=== PATIENT | male | born 1970 | race Caucasian/White ===

== ENCOUNTER 2019-06-17 08:18 | Emergency (ER) | payer OTHER, SELFPAY ==
--- NOTE | ~2019-06-17 | XR_ITS ---
EXAMINATION: XR chest 2V DATE: 06/17/2019 08:50 INDICATION: Mid chest pain, smoker TECHNIQUE: PA and lateral views of the chest are obtained. COMPARISON: 10/03/2018 FINDINGS: The lungs are free of acute opacities. There is no pleural effusion or pneumothorax. The ca rdiomediastinal silhouette is normal. There is mild thoracic spondylosis. IMPRESSION: 1. No acute cardiopulmonary abnormality. Reviewed, dictated and finalized at location A. ON MANIFEST CLERK
--- NOTE | ~2019-06-17 | CT_ITS ---
EXAMINATION: CTA chest abdomen DATE: 06/17/2019 12:52 INDICATION: Chest pain radiating to the abdomen TECHNIQUE: Computed tomographic angiography (CTA) of the chest and abdomen was performed without and with 100 mL Omnipaque-350 intravenous contrast. The dose-length product was 388.71 mGy-cm. Maximum in tensity projection 3D-reconstructions of the aorta and other arteries were constructed by the technol elizabeth on a separate workstation. Automated exposure control and iterative reconstruction technique we re employed. COMPARISON: CT dated 03/01/2015 FINDINGS: CHEST CTA: Mild emphysema. No focal airspace consolidation. No pneumothorax. No endobronchial lesions. No eviden ce for aortic aneurysm or dissection. Mild atherosclerosis of the aorta and coronary arteries. No ple ural or pericardial effusion. Heart size normal. No thoracic lymphadenopathy. ABDOMEN CTA: Normal caliber aorta without aneurysm or dissection. The celiac axis, SMA, renal arteries and NESS are patent. The liver, spleen, pancreas, adrenal glands and kidneys are unremarkable. No abdominal lymph adenopathy. Gallbladder is present. Bowel pattern is nonobstructive. Mild thoracic spondylosis. No ac duy osseous abnormality. IMPRESSION: 1. No acute abnormalities. No significant vascular abnormality. Mild atherosclerosis of the coronary arteries. 2: Mild emphysema. Reviewed, dictated and finalized at location A. AL INSPECTOR IMPRESSION: 1. No acute abnormalities. No significant vascular abnormality. Mild atheroscle rosis of the coronary arteries. 2: Mild emphysema.
--- NOTE | ~2019-06-17 | US_ITS ---
EXAMINATION: US right upper quadrant DATE: 06/17/2019 10:27 INDICATION: Abdominal pain TECHNIQUE: Multiple grayscale and Doppler ultrasound images of the abdomen were obtained. COMPARISON: None available FINDINGS: The head, body, and tail of the pancreas are normal. The liver is normal with normal echoge nicity and echotexture. No surface nodularity. Normal hepatopetal flow in the main portal vein. The g allbladder is normal with no abnormal wall thickening, pericholecystic fluid or stones. There is a 4 mm polyp of the gallbladder wall. No gallstones are gallbladder sludge are identified. There is no ga llbladder wall thickening or pericholecystic fluid. The normal common bile duct measures 3 mm. There was no sonographic White sign. IMPRESSION: 1. No sonographic correlate for the patient's symptoms. 2. 4 mm gallbladder polyp. Reviewed, dictated and finalized at location A. ADMIT
--- NOTE | 2019-06-17 08:23 | ED.CHESTPAIN ---
HPI - Chest Pain General Chief Complaint: Chest Pain Stated Complaint: chest pain Time Seen by Provider: 06/17/19 08:22 Source: patient and RN notes reviewed Mode of arrival: EMS Limitations: no limitations History of Present Illness HPI narrative: Pt is a 49 y/o male who presents to the ED, via EMS, with c/o brief sharp intermittent left sided chest pain that began (06/15/19). Pt states that today his pain was brief and lasted for less than one minute. He notes that today his pain radiated to random locations in his chest. Pt states that he went to [facility] on Wednesday (06/13/19) for chest pain and was recommended to be admitted and observed over night, but the pt left AMA. Pt states that he has an appointment with a slide maker at [facility] on Wednesday (06/20/19). Pt had a [employer] sandwich and he states the sandwich worsened his pain. Pt is an alcoholic and drinks two double shots of Fireball and four 16 ounce beers daily. He notes that he has not drank since Wednesday (06/13/19). Pt states his BM has been normal. Pt also reports burning RUQ ABD pain that began Wednesday (06/12/19), and back pain, but denies a fever, N/V/D, melena, SOB, diaphoresis, lightheadedness, and dizziness. complaint: chest pain Onset (ago): day(s) (2) Timing of current episode: now resolved Prior episodes: Yes Pain location: left chest Pain radiation: other (random locations in his chest) Quality: sharp Associated symptoms: other (burning RUQ ABD pain that began Wednesday (06/12/19), back pain) Related Data Allergies Allergy/AdvReac Type Severity Reaction Status Date / Time No Known Allergies Allergy Unknown Verified 06/17/19 08:36 Review of Systems Review of Systems: All systems reviewed & are unremarkable except as noted in HPI and below Constitutional: Constitutional: Denies fever(s) Cardiovascular: Cardiovascular: Reports chest pain (left sided, radiated to random locations in his chest (resolved)), Denies diaphoresis and Denies lightheadedness Respiratory: Respiratory: Denies dyspnea Gastrointestinal: Gastrointestinal: Reports abdominal pain (burning RLQ, that began Wednesday (06/12/19)), Denies melena, Denies diarrhea, Denies nausea and Denies vomiting Musculoskeletal: Musculoskeletal: Reports back pain Neurologic: Denies dizziness PMFSH Past Medical History Medical History (Updated 06/17/19 @ 13:29 by Jazmyn Hernandez MD) Arthritis Closed right ankle fracture Ganglion cyst behind his right knee GERD (gastroesophageal reflux disease) HTN (hypertension) Hyperlipidemia Sleep apnea Surgical History Surgical History (Updated 06/17/19 @ 08:54 by Emma Pope) H/O removal of cyst History of hand surgery left tendon repair Family History Family History (Updated 06/17/19 @ 08:56 by Emma Pope) Sibling Family history of malignant neoplasm of stomach Mother Family history of malignant neoplasm of breast in first degree relative Cerebrovascular accident Social History Social History (Updated 06/17/19 @ 08:52 by Emma Pope) Smoking packs per day: 1.5 Smoking cigarettes per day: 30.0 Smoking status: Current every day smoker Tobacco type: cigarettes Alcohol intake: current Substance use: never Additional occupation/education comments: Pt works at [employer]. Gender identity (if verbalized by the patient): Male Exam Narrative: Exam Narrative: GENERAL: Well-appearing, well-nourished, and in no acute distress. HEAD: Normocephalic, atraumatic EYES: PERRLA and EOMI, conjunctiva clear without discharge THROAT:Mucous membranes moist, Oropharynx normal without erythema, exudate, peritonsillar swelling or fluctuance NECK: Supple, without lymphadenopathy or mass RESPIRATORY: No respiratory distress, Airway patent, Respirations non-labored, Clear to auscultation without rales, rhonchi or wheeze HEART: Regular rate and rhythm. No murmur heard. Normal peripheral pulses. ABDOMEN: Soft, nont
[2019-06-17 08:27] VITALS: BP 139/92; PULSE 72; RESP 15; TEMP 36.7; O2SAT 100
--- NOTE | 2019-06-17 08:28 | ECG_ITS ---
Measurements Intervals [place] Rate: 69 P: 61 [place]: 175 QRS: 71 QRSD: 109 T: 54 QT: 376 QTc: 404 Interpretive Statements SINUS RHYTHM INCOMPLETE RIGHT BUNDLE BRANCH BLOCK DELAYED PRECORDIAL R/S TRANSITION BASELINE ARTIFACT- I, II, AVR BORDERLINE ECG Electronically Signed On 06-17-2019 17:26:23 SEARCH SPECIALIST by Martin Diane D.O.
[2019-06-17 08:53] LABS: Basophils Absolute Auto 0.1 K/mm3 (0.0-0.1); Basophils Percent Auto 1.1 % (0.2-1.2); Eosinophils Absolute Auto 0.2 K/mm3 (0-0.3); Eosinophils Percent Auto 2.8 % (0-4.4); Hematocrit 44.9 % (42.0-52.0); Hemoglobin 14.9 g/dL (14.0-18.0); Immature Granulocyte Absolute 0.02 K/mm3 (0.00-0.031); Immature Granulocyte Percent A 0.3 % (0-0.5); Lymphocytes Absolute Auto 1.66 K/mm3 (0.9-3.2); Lymphocytes Percent Auto 27.2 % (18.3-44.2); Mean Corpuscular HGB Conc 33.2 g/dl (32-36); Mean Corpuscular Hemoglobin 32.2 pg (26-34); Mean Platelet Volume 10.2 fl (7.4-10.4); Monocytes Absolute Auto 0.5 K/mm3 (0.1-0.6); Monocytes Percent Auto 8.9 % (2.6-8.5); Neutrophils Absolute Auto 3.6 K/mm3 (1.3-6.7); Neutrophils Percent Auto 59.7 % (45.5-73.1); Platelet Count Result 259 k/mm3 (150-375); Red Blood Count 4.63 M/mm3 (4.6-6.20); Red Cell Distribution Width 13.2 % (11.5-14.5); White Blood Count 6.1 K/mm3 (4.5-10.0)
--- NOTE | 2019-06-17 08:57 | PC.NURSE ---
Dr. Hernandez canceled order
[2019-06-17 09:03] LABS: Prothrombin Time 12.4 Seconds (11.1-14.7)
[2019-06-17 09:04] LABS: Partial Thromboplastin Time 30.9 SECONDS (22.3-36.8)
[2019-06-17 09:05] LABS: Alanine Aminotransferase 20 U/L (4-50); Albumin Level 4.8 g/dL (3.5-5.1); Alkaline Phosphatase 69 U/L (38-126); Aspartate Amino Transferase 24 U/L (17-59); Bilirubin,Total 0.6 mg/dL (0.2-1.3); Blood Urea Nitrogen 12 mg/dL (9-20); Calcium 9.7 mg/dL (8.4-10.2); Carbon Dioxide 24 mmol/L (22-30); Chloride 102 mmol/L (98-107); Estimated CRCL calculation 80 ml/min; Estimated Glomerular Filt Rate > 60; Glucose 111 mg/dL (75-110); Lipase 60 U/L (23-300); Potassium 4.4 mmol/L (3.4-5.0); Sodium 140 mmol/L (137-145)
[2019-06-17 09:17] LABS: Troponin I < 0.012 ng/mL (0.000-0.034)
[2019-06-17 09:53] VITALS: BP 122/81; PULSE 63; RESP 16; O2SAT 100
[2019-06-17 11:49] LABS: Troponin I < 0.012 ng/mL (0.000-0.034)
[2019-06-17 12:48] VITALS: BP 128/97; PULSE 70; RESP 15; O2SAT 98
[2019-06-17 13:41] VITALS: BP 149/84; PULSE 67; RESP 18; O2SAT 100
== END 2019-06-17 13:42 | disposition home or self-care (01) ==
PROVIDERS: Emergency Provider General Practice; PCP Emergency Medicine
DX: R07.89 Other chest pain (principal); R10.11 Right upper quadrant pain; M19.90 Unspecified osteoarthritis, unspecified site; K21.9 Gastro-esophageal reflux disease without esophagitis; I10 Essential (primary) hypertension; E78.5 Hyperlipidemia, unspecified; G47.30 Sleep apnea, unspecified; F17.210 Nicotine dependence, cigarettes, uncomplicated; K82.4 Cholesterolosis of gallbladder; J43.9 Emphysema, unspecified; I45.10 Unspecified right bundle-branch block; R94.31 Abnormal electrocardiogram [ECG] [EKG]
CPT/HCPCS: 36415; 71046; 71275; 74175; 76705; 80048; 80076; 83690; 84484; 85025; 85610; 85730; 93005; 99284; A9270; Q9967

== ENCOUNTER 2019-06-27 07:13 | Outpatient (CLI) | payer OTHER, SELFPAY ==
--- NOTE | ~2019-06-27 | NM_ITS ---
EXAMINATION: NM hepatobiliary w pharm DATE: 06/27/2019 09:16 INDICATION: Right upper quadrant abdominal pain. COMPARISON: CT abdomen 06/17/2019 TECHNIQUE: 5.2 mCi Tc-99m mebrofenin (Choletec) was administered intravenously. Scintigraphic images of the abdomen were obtained for one hour. Then, 1.5 mcg sincalide (Kinevac) IV was administered, an d imaging was continued for 30 minutes. FINDINGS: There is normal clearance of radiotracer from the blood pool. There is homogeneous tracer u ptake by the liver. Activity progresses to the bowel and gallbladder. Gallbladder ejection fraction (GBEF) was 55%. Note that most patients with gallbladder dysfunction have GBEF < 35%, which overlaps with the broad normal range of 10-90%. IMPRESSION: 1. Normal hepatobiliary scintigraphy. Reviewed, dictated and finalized at location A. AND SKIN FLESHING MACHINE OPERATOR
== END 2019-06-27 07:14 | disposition home or self-care (01) ==
LOC: ANHIMG 07:18
PROVIDERS: PCP Emergency Medicine; Visit Provider Emergency Medicine
DX: R10.11 Right upper quadrant pain (principal)
CPT/HCPCS: 78227; A9537; J2805

== ENCOUNTER → 2020-02-03 07:30 | Outpatient (CLI) | payer OTHER, SELFPAY ==
--- NOTE | ~2020-02-03 | US_ITS ---
US abdomen limited INDICATION: Follow-up gallbladder polyps PROCEDURE: Realtime right upper abdominal ultrasound. COMPARISON: No prior studies for comparison. FINDINGS: The pancreas is normal without focal mass or pancreatic ductal dilation. Liver echotexture is normal without focal mass or intrahepatic biliary dilatation. There is normal directional flow i n the portal vein. There are gallbladder polyps, largest measuring 5 mm. Common bile duct measures 3 mm. No sonographi c White's sign. IMPRESSION: 1: Gallbladder polyps measuring 5 mm or less. Reviewed, dictated and finalized at location A.
== END ==
PROVIDERS: PCP Emergency Medicine; Visit Provider Emergency Medicine
DX: K82.4 Cholesterolosis of gallbladder (principal)
CPT/HCPCS: 76705

== ENCOUNTER 2020-03-28 16:31 | Emergency (ER) | payer OTHER, SELFPAY ==
--- NOTE | 2020-03-28 16:38 | ECG_ITS ---
Measurements Intervals [place] Rate: 68 P: 60 [place]: 191 QRS: 67 QRSD: 109 T: 40 QT: 376 QTc: 401 Interpretive Statements SINUS RHYTHM DELAYED PRECORDIAL R/S TRANSITION BASELINE ARTIFACT- AVR, AVF, V6 BORDERLINE ECG Electronically Signed On 03-28-2020 18:23:18 SHEET MILL SUPERVISOR by Martin Diane D.O.
[2020-03-28 16:50] VITALS: BP 143/79; PULSE 74; RESP 16; TEMP 36.6; O2SAT 96
[2020-03-28 17:09] LABS: Basophils Absolute Auto 0.1 K/mm3 (0.0-0.1); Eosinophils Absolute Auto 0.3 K/mm3 (0-0.3); Eosinophils Percent Auto 3.6 % (0-4.4); Hematocrit 40.5 % (42.0-52.0); Hemoglobin 13.9 g/dL (14.0-18.0); Immature Granulocyte Absolute 0.03 K/mm3 (0.00-0.031); Immature Granulocyte Percent A 0.4 % (0-0.5); Lymphocytes Absolute Auto 2.52 K/mm3 (0.9-3.2); Lymphocytes Percent Auto 31.4 % (18.3-44.2); Mean Corpuscular HGB Conc 34.3 g/dl (32-36); Mean Corpuscular Hemoglobin 32.9 pg (26-34); Mean Corpuscular Volume 95.7 fl (80-100); Mean Platelet Volume 9.9 fl (7.4-10.4); Monocytes Absolute Auto 0.6 K/mm3 (0.1-0.6); Monocytes Percent Auto 7.7 % (2.6-8.5); Neutrophils Absolute Auto 4.5 K/mm3 (1.3-6.7); Neutrophils Percent Auto 55.9 % (45.5-73.1); Platelet Count Result 230 k/mm3 (150-375); Red Blood Count 4.23 M/mm3 (4.6-6.20); Red Cell Distribution Width 13.1 % (11.5-14.5)
[2020-03-28 17:20] LABS: Alanine Aminotransferase 21 U/L (4-50); Albumin Level 4.5 g/dL (3.5-5.1); Alkaline Phosphatase 79 U/L (38-126); Anion Gap 10 mmol/L (8-16); Aspartate Amino Transferase 26 U/L (17-59); Bilirubin,Total 0.3 mg/dL (0.2-1.3); Blood Urea Nitrogen 18 mg/dL (9-20); Calcium 9.4 mg/dL (8.4-10.2); Carbon Dioxide 24 mmol/L (22-30); Chloride 104 mmol/L (98-107); Estimated CRCL calculation 71 ml/min; Estimated Glomerular Filt Rate > 60; Glucose 102 mg/dL (75-110); Potassium 3.6 mmol/L (3.4-5.0); Sodium 138 mmol/L (137-145)
[2020-03-28 17:26] LABS: D Dimer 0.27 ug/mL (<0.48)
[2020-03-28 17:33] LABS: Troponin I < 0.012 ng/mL (0.000-0.034)
--- NOTE | 2020-03-28 18:05 | ED.GENADULT ---
HPI - General Adult General Chief complaint: Dizziness Stated complaint: dizzy/palpitations Time Seen by Provider: 03/28/20 16:38 Source: patient Mode of arrival: ambulatory Limitations: no limitations History of Present Illness HPI narrative: 50-year-old with a history of anxiety disorder, hypertension, hypercholesteremia here with complaints of palpitations and dizziness since this afternoon. Patient states he was at work and all of a sudden started having intermittent palpitations like skipped beat lasted for few minutes and soon after he felt dizzy. He denies any chest pain or shortness of breath. No history of nausea or vomiting. He states he is presently feeling better. Onset (ago): hour(s) (4) Exacerbating factors: none Associated symptoms: denies other symptoms Related Data Home Medications Medication Instructions Recorded Confirmed amlodipine 03/28/20 03/28/20 buspirone mg 03/28/20 hydrocodone-acetaminophen 03/28/20 omeprazole 03/28/20 rosuvastatin mg 03/28/20 Allergies Allergy/AdvReac Type Severity Reaction Status Date / Time No Known Allergies Allergy Unknown Verified 06/17/19 08:36 Review of Systems Review of Systems: All systems reviewed & are unremarkable except as noted in HPI and below Constitutional: Constitutional: Reports no additional constitutional complaints Eyes: Eyes: Reports no additional eye complaints ENT: Reports system reviewed and no additional complaints, except as documented Cardiovascular: Cardiovascular: Reports as per HPI Respiratory: Respiratory: Reports no additional respiratory complaints Gastrointestinal: Gastrointestinal: Reports no additional gastrointestinal complaints Musculoskeletal: Musculoskeletal: Reports no additional musculoskeletal complaints [facility] Past Medical History Medical History Arthritis Closed right ankle fracture Ganglion cyst behind his right knee GERD (gastroesophageal reflux disease) HTN (hypertension) Hyperlipidemia Sleep apnea Surgical History Surgical History H/O removal of cyst History of hand surgery left tendon repair Family History Family History Sibling Family history of malignant neoplasm of stomach Mother Family history of malignant neoplasm of breast in first degree relative Cerebrovascular accident Social History Social History Smoking packs per day: 1.5 Smoking cigarettes per day: 30.0 Smoking status: Current every day smoker Tobacco type: cigarettes Alcohol intake: current Substance use: never Additional occupation/education comments: Pt works at [employer]. Gender identity (if verbalized by the patient): Male Exam Narrative: Exam Narrative: GENERAL: Well-appearing, well-nourished, and in no acute distress. HEAD: Normocephalic, atraumatic. EYES: PERRLA and EOMI. NECK: Supple. CHEST: Clear to auscultation. No respiratory distress. HEART: Regular rate and rhythm. No murmur heard. Normal peripheral pulses. ABDOMEN: Soft, nontender, nondistended, normal active bowel sounds. EXTREMITIES: Normal range of motion. No edema. SKIN: Warm, dry, no rash. NEURO: No focal deficits. Alert and oriented x3. PSYCH: Normal mood and affect. Course Course Emergency Course: Patient lying comfortably on the bed talking on the phone in no distress, informed him about his lab work, EKG findings. Cause of his palpitations is unknown , advised him to continue his home medication, if symptoms persist advised him to follow-up with his primary doctor for possible Holter monitor. Vital Signs Vital signs: Vital Signs Temperature 36.6 C 03/28/20 16:50 Pulse Rate 74 03/28/20 16:50 Respiratory Rate 16 03/28/20 16:50 Blood Pressure 143/79 H 03/28/20 16:50 Pulse Oximetry 96 1
[2020-03-28 19:05] VITALS: BP 129/75; PULSE 70; RESP 16; O2SAT 98
== END 2020-03-28 19:07 | disposition home or self-care (01) ==
PROVIDERS: Emergency Provider Family Medicine; PCP Emergency Medicine
DX: R00.2 Palpitations (principal); I10 Essential (primary) hypertension; E78.00 Pure hypercholesterolemia, unspecified; F41.9 Anxiety disorder, unspecified; M19.90 Unspecified osteoarthritis, unspecified site; K21.9 Gastro-esophageal reflux disease without esophagitis; G47.30 Sleep apnea, unspecified; F17.210 Nicotine dependence, cigarettes, uncomplicated; R94.31 Abnormal electrocardiogram [ECG] [EKG]
CPT/HCPCS: 36415; 80053; 84484; 85025; 85380; 93005; 99284

== ENCOUNTER 2020-06-16 12:21 | Emergency (ER) | payer OTHER, SELFPAY ==
--- NOTE | ~2020-06-16 | XR_ITS ---
EXAMINATION: XR chest 1V portable EXAM DATE: 06/16/2020 17:17 INDICATION: Mid chest pain, rapid heart rate. High blood pressure. TECHNIQUE: Portable AP frontal chest x-ray was obtained. Comparison is made to prior examination from 06/17/2019. FINDINGS: Oh There is no focal air space disease. There are no pleural effusions. The cardiothymic silhouette is normal. There is no pneumothorax. There are no osseous or soft tissue abnormalities i n this skeletally immature patient. Lungs have normal volume. IMPRESSION: No acute cardiopulmonary findings. Reviewed, dictated and finalized at location A. RONMENTAL STUDIES PROFESSOR
[2020-06-16 12:21] VITALS: BP 140/93; PULSE 97; RESP 23; TEMP 36.8; O2SAT 100
--- NOTE | 2020-06-16 12:25 | ECG_ITS ---
Measurements Intervals [place] Rate: 89 P: 73 [place]: 176 QRS: 82 QRSD: 101 T: 62 QT: 336 QTc: 409 Interpretive Statements SINUS RHYTHM POSSIBLE LEFT ATRIAL ENLARGEMENT INCOMPLETE RIGHT BUNDLE BRANCH BLOCK DELAYED PRECORDIAL R/S TRANSITION BASELINE WANDER- II, III, AVF BORDERLINE ECG Electronically Signed On 06-16-2020 15:23:43 PARTNER MANAGER by Martin Diane D.O.
[2020-06-16 12:35] VITALS: PULSE 77
[2020-06-16 12:38] LABS: Basophils Absolute Auto 0.1 K/mm3 (0.0-0.1); Basophils Percent Auto 1.1 % (0.2-1.2); Eosinophils Absolute Auto 0.4 K/mm3 (0-0.3); Eosinophils Percent Auto 3.9 % (0-4.4); Hematocrit 42.9 % (42.0-52.0); Hemoglobin 14.6 g/dL (14.0-18.0); Immature Granulocyte Absolute 0.04 K/mm3 (0.00-0.031); Immature Granulocyte Percent A 0.4 % (0-0.5); Lymphocytes Absolute Auto 3.06 K/mm3 (0.9-3.2); Lymphocytes Percent Auto 32.9 % (18.3-44.2); Mean Corpuscular Hemoglobin 32.2 pg (26-34); Mean Corpuscular Volume 94.7 fl (80-100); Mean Platelet Volume 9.5 fl (7.4-10.4); Monocytes Absolute Auto 0.8 K/mm3 (0.1-0.6); Monocytes Percent Auto 8.3 % (2.6-8.5); Neutrophils Percent Auto 53.4 % (45.5-73.1); Platelet Count Result 293 k/mm3 (150-375); Red Blood Count 4.53 M/mm3 (4.6-6.20); Red Cell Distribution Width 13.2 % (11.5-14.5); White Blood Count 9.3 K/mm3 (4.5-10.0)
--- NOTE | 2020-06-16 12:45 | ED.CHESTPAIN ---
HPI - Chest Pain General Chief Complaint: Chest Pain Stated Complaint: chest pain Time Seen by Provider: 06/16/20 12:28 Source: patient and EMS Mode of arrival: EMS Limitations: no limitations History of Present Illness HPI narrative: Patient is 50 years old white male came to the emergency room by ambulance because of sudden onset chest tightness, palpitation, tingling numbness at the back of his head and left hand, loud ringing in the ears. Started while going upstairs. Prior to arrival to the emergency room. Tightness was 10 out of 10, currently is 0 out of 10. History of hypertension, hyperlipidemia, smoking, daily alcohol intake, denies any cocaine use. Patient reports a lot of stress lately. Related Data Home Medications Medication Instructions Recorded Confirmed amlodipine 03/28/20 03/28/20 buspirone mg 03/28/20 hydrocodone-acetaminophen 03/28/20 omeprazole 03/28/20 rosuvastatin mg 03/28/20 Allergies Allergy/AdvReac Type Severity Reaction Status Date / Time No Known Allergies Allergy Unknown Verified 06/16/20 12:35 Review of Systems Review of Systems: Narrative: CONSTITUTIONAL: Denies fever, chills, or sweats. EYES: Denies visual changes, redness, or discharge. ENT: Denies rhinorrhea, congestion, sore throat, or otalgia. CARDIOVASCULAR: Denies chest pain, palpitations, or edema. RESPIRATORY: Denies cough or dyspnea. GASTROINTESTINAL: Denies abdominal pain, nausea, vomiting, or diarrhea. GENITOURINARY: Denies dysuria or hematuria. SKIN: Denies rash or itching. MUSCULOSKELETAL: Denies back pain, joint pain, or myalgia. NEUROLOGIC: Denies headache, numbness, or weakness. PSYCHIATRIC: Denies anxiety or depression. [facility] Past Medical History Medical History Arthritis Closed right ankle fracture Ganglion cyst behind his right knee GERD (gastroesophageal reflux disease) HTN (hypertension) Hyperlipidemia Sleep apnea Surgical History Surgical History H/O removal of cyst History of hand surgery left tendon repair Family History Family History Sibling Family history of malignant neoplasm of stomach Mother Family history of malignant neoplasm of breast in first degree relative Cerebrovascular accident Social History Social History Smoking packs per day: 1.5 Smoking cigarettes per day: 30.0 Smoking status: Current every day smoker Tobacco type: cigarettes Alcohol intake: current Substance use: never Additional occupation/education comments: Pt works at [employer]. Gender identity (if verbalized by the patient): Male Exam Narrative: Exam Narrative: General appearance: Well-developed, well-nourished Skin: Normal color Head: Normocephalic, nontraumatic Eyes: Clear conjunctiva ENT: Oropharynx normal, ears normal, nose normal Neck: Supple, nontender Chest and respiratory: Airway patent, no respiratory distress, no accessory muscle use Heart: Regular rate/rhythm Abdomen: Soft, nontender, no organomegaly, quiet bowel sounds Vascular: Normal peripheral pulses, normal capillary refill. Musculoskeletal: Normal range of motion, nontender back Neurologic: Alert and oriented ?3, GIS ADMINISTRATOR is normal as tested, no gross motor deficit Course Course Emergency Course: Stable, improved Reevaluation(s) Reevaluation #1: Patient has been asymptomatic since arrival to the emergency room on the time of discharge. Patient was scheduled to see a call manager June 26 for regular checkup. Patient is telling
[2020-06-16 12:49] LABS: Anion Gap 9 mmol/L (8-16); Blood Urea Nitrogen 16 mg/dL (9-20); Calcium 9.7 mg/dL (8.4-10.2); Carbon Dioxide 25 mmol/L (22-30); Chloride 104 mmol/L (98-107); Estimated CRCL calculation 88 ml/min; Estimated Glomerular Filt Rate > 60; Glucose 94 mg/dL (75-110); Sodium 138 mmol/L (137-145)
[2020-06-16 12:53] VITALS: BP 153/92; PULSE 80
[2020-06-16 12:55] VITALS: BP 149/92; BP 150/98; PULSE 86; PULSE 88
[2020-06-16 12:59] LABS: D Dimer 0.27 ug/mL (<0.48)
--- NOTE | 2020-06-16 14:04 | ECG_ITS ---
Measurements Intervals [place] Rate: 66 P: 56 [place]: 192 QRS: 70 QRSD: 105 T: 56 QT: 364 QTc: 383 Interpretive Statements SINUS RHYTHM INCOMPLETE RIGHT BUNDLE BRANCH BLOCK DELAYED PRECORDIAL R/S TRANSITION BORDERLINE ECG Electronically Signed On 06-16-2020 15:27:46 COMPANION CAREGIVER by Martin Diane D.O.
[2020-06-16 14:15] VITALS: BP 145/89; PULSE 87; RESP 18; O2SAT 100
[2020-06-16] MEDS: ASPIRIN 81 MG CHEWABLE TABLET 324 MG PO (14:34)
[2020-06-16 14:45] LABS: INR 0.9; Prothrombin Time 12.2 Seconds (11.1-14.7)
[2020-06-16 14:46] LABS: Partial Thromboplastin Time 30.3 SECONDS (22.3-36.8)
[2020-06-16 14:52] LABS: Alanine Aminotransferase 25 U/L (4-50); Albumin Level 4.5 g/dL (3.5-5.1); Alkaline Phosphatase 94 U/L (38-126); Aspartate Amino Transferase 32 U/L (17-59); Bilirubin,Total 0.3 mg/dL (0.2-1.3)
[2020-06-16 15:00] LABS: Troponin I < 0.012 ng/mL (0.000-0.034)
[2020-06-16 16:14] VITALS: BP 128/87; PULSE 72; RESP 18; O2SAT 100
[2020-06-16 16:50] LABS: Troponin I < 0.012 ng/mL (0.000-0.034)
[2020-06-20 16:26] LABS: Methyl Alcohol Level None Detected (None Detected)
== END 2020-06-16 17:40 | disposition home or self-care (01) ==
PROVIDERS: Emergency Provider Emergency Medicine; PCP Emergency Medicine
DX: R07.89 Other chest pain (principal); I10 Essential (primary) hypertension; E78.5 Hyperlipidemia, unspecified; F17.210 Nicotine dependence, cigarettes, uncomplicated; M19.90 Unspecified osteoarthritis, unspecified site; K21.9 Gastro-esophageal reflux disease without esophagitis; G47.30 Sleep apnea, unspecified
CPT/HCPCS: 36415; 71045; 80048; 80076; 84484; 84600; 85025; 85380; 85610; 85730; 93005; 99284; A9270

== ENCOUNTER 2020-09-07 07:33 | Outpatient (CLI) | payer OTHER, SELFPAY ==
--- NOTE | ~2020-09-07 | US_ITS ---
US right upper quadrant DATE: 09/07/2020 10:24 INDICATION: Gallbladder polyp TECHNIQUE: Real-time imaging of liver, pancreas, gallbladder areas COMPARISON: 02/03/2020 limited abdominal ultrasound examination FINDINGS: Approximately 4 mm and 3 mm gallbladder polyps are noted. No gallstones. Gallbladder wall t hickness is within normal range. Negative sonographic White's sign. No hepatic or pancreatic space-occupying mass lesion is evident. Normal hepatopedal portal venous shraddha w direction. The common bile duct measures 5 mm, within normal range. IMPRESSION: 4 mm and 3 mm gallbladder polyps Reviewed, dictated and finalized at Location A. Reviewed, dictated and finalized at location A.
== END 2020-09-07 07:34 | disposition home or self-care (01) ==
PROVIDERS: PCP Emergency Medicine; Visit Provider Emergency Medicine
DX: K82.4 Cholesterolosis of gallbladder (principal)
CPT/HCPCS: 76705

== ENCOUNTER 2020-10-13 07:00 | Emergency (ER) | payer OTHER, SELFPAY ==
[2020-10-13] VITALS (24 sets, daily range): BP systolic 119–153; BP diastolic 66–92; PULSE 65–122; RESP 15–31; TEMP 37.4; O2SAT 96–100
--- NOTE | 2020-10-13 07:05 | ECG_ITS ---
Measurements Intervals [place] Rate: 91 P: 66 [place]: 166 QRS: 73 QRSD: 109 T: 43 QT: 360 QTc: 444 Interpretive Statements SINUS RHYTHM POSSIBLE LEFT ATRIAL ENLARGEMENT INCOMPLETE RIGHT BUNDLE BRANCH BLOCK ABNORMAL ECG Electronically Signed On 10-13-2020 8:22:49 CDT by Martin Diane D.O.
--- NOTE | 2020-10-13 07:21 | ED.GENADULT ---
HPI - General Adult General Chief complaint: Arrhythmia/Palpitations Stated complaint: heart skipping beats. Time Seen by Provider: 10/13/20 07:02 Source: patient History of Present Illness HPI narrative: Patient is a 50 y/o male complaining of frequent heart palpitation starting today. He states that rest seems help. He has no chest pain or SOB. Related Data Home Medications Medication Instructions Recorded Confirmed amlodipine 03/28/20 03/28/20 rosuvastatin mg 03/28/20 Allergies Allergy/AdvReac Type Severity Reaction Status Date / Time No Known Allergies Allergy Unknown Verified 10/13/20 07:10 Review of Systems Constitutional: Constitutional: Denies chills, Denies fever(s), Denies headache(s) and Denies weakness Eyes: Eyes: Denies blurry vision ENT: Denies headache(s) and Denies neck pain Cardiovascular: Cardiovascular: Denies chest pain, Reports irregular heart rhythm and Denies dyspnea Respiratory: Respiratory: Denies cough and Denies dyspnea Gastrointestinal: Gastrointestinal: Denies abdominal pain, Denies diarrhea, Denies nausea and Denies vomiting Genitourinary: Genitourinary: Denies hematuria and Denies dysuria Musculoskeletal: Musculoskeletal: Denies back pain and Denies neck pain Neurologic: Denies headache(s) and Denies weakness PMFSH Past Medical History Medical History Arthritis Closed right ankle fracture Ganglion cyst behind his right knee GERD (gastroesophageal reflux disease) HTN (hypertension) Hyperlipidemia Sleep apnea Surgical History Surgical History H/O removal of cyst History of hand surgery left tendon repair Family History Family History Sibling Family history of malignant neoplasm of stomach Mother Family history of malignant neoplasm of breast in first degree relative Cerebrovascular accident Social History Social History Smoking packs per day: 1.5 Smoking cigarettes per day: 30.0 Smoking status: Current every day smoker Tobacco type: cigarettes Alcohol intake: current Substance use: never Additional occupation/education comments: Pt works at [employer] Gender identity (if verbalized by the patient): Male Exam Const: General: no acute distress and well developed Orientation/consciousness: oriented to person, oriented to place, oriented to time and patient oriented x3 HENMT: Head: normocephalic Ears: external ears normal General nose exam: Normal external nose present Eyes: General: appearance normal, both eyes and all related structures Conjunctivae: conjunctivae normal Neck: Neck: normal visual inspection and full ROM Chest: Chest palpation & inspection: normal inspection of the chest and no tenderness Resp: Effort & Inspection: normal respiratory effort Auscultation: clear to auscultation bilaterally Cardio: Rate: regular rate Rhythm: regular rhythm GI: GI Palp: No abdominal tenderness and Yes Soft to palpation Skin: General skin exam: normal color and turgor normal Neuro: General: oriented to person, oriented to place, oriented to time and patient oriented x3 Cognition (Neuro): normal cognition Extrem: General: normal to inspection, full ROM and no pedal edema Psych: Appearance: grossly normal Mental Status: mental status grossly normal Affect: normal affect Course Reevaluation(s) Reevaluation #1: Discussed with patient about labs and EKG results and plan for discharge. Occasional PVC is noted on monitor and it's likely the cause of patient's symptoms. Date: 10/13/20 Time: 10:15 Vital Signs Vital signs: Vital Signs Temperature 37.4 C 10/13/20 07:05 Pulse Rate 96 10/13/20 07:05 Respiratory Rate 20 10/13/20 07:05 Blood Pressure 153/92 H 10/13/20 07:05 Pulse Oximetry 99 10/13/20
[2020-10-13 07:22] LABS: Basophils Absolute Auto 0.1 K/mm3 (0.0-0.1); Basophils Percent Auto 1.2 % (0.2-1.2); Eosinophils Absolute Auto 0.3 K/mm3 (0-0.3); Eosinophils Percent Auto 3.9 % (0-4.4); Hematocrit 43.5 % (42.0-52.0); Hemoglobin 14.6 g/dL (14.0-18.0); Immature Granulocyte Absolute 0.02 K/mm3 (0.00-0.031); Immature Granulocyte Percent A 0.2 % (0-0.5); Lymphocytes Absolute Auto 2.49 K/mm3 (0.9-3.2); Lymphocytes Percent Auto 29.5 % (18.3-44.2); Mean Corpuscular HGB Conc 33.6 g/dl (32-36); Mean Corpuscular Hemoglobin 31.9 pg (26-34); Mean Corpuscular Volume 95.2 fl (80-100); Mean Platelet Volume 9.5 fl (7.4-10.4); Monocytes Absolute Auto 0.7 K/mm3 (0.1-0.6); Monocytes Percent Auto 8.4 % (2.6-8.5); Neutrophils Absolute Auto 4.8 K/mm3 (1.3-6.7); Neutrophils Percent Auto 56.8 % (45.5-73.1); Platelet Count Result 235 k/mm3 (150-375); Red Blood Count 4.57 M/mm3 (4.6-6.20); White Blood Count 8.4 K/mm3 (4.5-10.0)
[2020-10-13 07:31] LABS: Anion Gap 13 mmol/L (8-16); Blood Urea Nitrogen 20 mg/dL (9-20); Calcium 9.5 mg/dL (8.4-10.2); Carbon Dioxide 22 mmol/L (22-30); Chloride 107 mmol/L (98-107); Estimated CRCL calculation 76 ml/min; Estimated Glomerular Filt Rate > 60; Glucose 90 mg/dL (75-110); Potassium 3.9 mmol/L (3.4-5.0); Sodium 142 mmol/L (137-145)
[2020-10-13 07:43] LABS: Troponin I < 0.012 ng/mL (0.000-0.034)
[2020-10-13 08:18] LABS: Thyroid Stimulating Hormone 0.598 uIU/mL (0.465-4.680)
== END 2020-10-13 10:30 | disposition home or self-care (01) ==
PROVIDERS: Emergency Provider Emergency Medicine; PCP Emergency Medicine
DX: R00.2 Palpitations (principal); I49.3 Ventricular premature depolarization; M19.90 Unspecified osteoarthritis, unspecified site; K21.9 Gastro-esophageal reflux disease without esophagitis; E78.5 Hyperlipidemia, unspecified; I10 Essential (primary) hypertension; G47.30 Sleep apnea, unspecified; F17.210 Nicotine dependence, cigarettes, uncomplicated; I45.10 Unspecified right bundle-branch block; R94.31 Abnormal electrocardiogram [ECG] [EKG]
CPT/HCPCS: 36415; 80048; 84443; 84484; 85025; 93005; 99284

== ENCOUNTER 2020-10-19 03:19 | Emergency (ER) | payer OTHER, SELFPAY ==
[2020-10-19] VITALS (37 sets, daily range): BP systolic 112–157; BP diastolic 67–101; PULSE 57–82; RESP 14–20; O2SAT 96–100
--- NOTE | ~2020-10-19 | XR_ITS ---
EXAMINATION: XR chest 2V 10/19/2020 03:40 INDICATION: Chest pain PROCEDURE: PA and lateral views of the chest COMPARISON: Comparison to multiple prior studies sequentially, with oldest reviewed study dated 10/10. FINDINGS: The lungs are clear. The cardiomediastinal silhouette is within normal limits. There are no pleural effusions. There is no pneumothorax suspected. IMPRESSION: 1: NO ACUTE CARDIOPULMONARY DISEASE. Reviewed, dictated and finalized at location A.
--- NOTE | 2020-10-19 03:25 | ED.CHESTPAIN ---
HPI - Chest Pain General Chief Complaint: Chest Pain <West Glover MD - Last Filed: 10/19/20 06:53> Stated Complaint: Chest pain, pain with inspiration <West Glover MD - Last Filed: 10/19/20 06:53> Time Seen by Provider: 10/19/20 03:24 <West Glover MD - Last Filed: 10/19/20 06:53> History of Present Illness HPI narrative: Pain across the anterior chest. Worse with taking a deep breath or any movement of the upper body. Moderate intensity. Associated with mild SOB. He smokes about 1.5 PPD. No change in activity. <West Glover MD - Last Filed: 10/19/20 06:53> Related Data Home Medications: Home Medications Medication Instructions Recorded Confirmed amlodipine 03/28/20 03/28/20 rosuvastatin mg 03/28/20 <West Glover MD - Last Filed: 10/19/20 06:53> Allergies/Adverse Reactions: Allergies Allergy/AdvReac Type Severity Reaction Status Date / Time No Known Allergies Allergy Unknown Verified 10/19/20 03:29 <West Glover MD - Last Filed: 10/19/20 06:53> Review of Systems Review of Systems: All systems reviewed & are unremarkable except as noted in HPI and below <West Glover MD - Last Filed: 10/19/20 06:53> Constitutional: Constitutional: Denies chills and Denies fever(s) <West Glover MD - Last Filed: 10/19/20 06:53> Cardiovascular: Cardiovascular: Reports as per HPI and Denies radiating jaw, neck or arm pain <West Glover MD - Last Filed: 10/19/20 06:53> Respiratory: Respiratory: Reports dyspnea <West Glover MD - Last Filed: 10/19/20 06:53> Gastrointestinal: Gastrointestinal: Denies nausea and Denies vomiting <West Glover MD - Last Filed: 10/19/20 06:53> Musculoskeletal: Musculoskeletal: Reports no additional musculoskeletal complaints <West Glover MD - Last Filed: 10/19/20 06:53> Integumentary/Breasts: Skin/Breast: Reports system reviewed and no additional complaints, except as docu <West Glover MD - Last Filed: 10/19/20 06:53> Neurologic: Denies dizziness and Denies weakness <West Glover MD - Last Filed: 10/19/20 06:53> PMFSH Past Medical History Medical History: Medical History Arthritis Closed right ankle fracture Ganglion cyst behind his right knee GERD (gastroesophageal reflux disease) HTN (hypertension) Hyperlipidemia Sleep apnea <West Glover MD - Last Filed: 10/19/20 06:53> Surgical History Surgical History: Surgical History H/O removal of cyst History of hand surgery left tendon repair <West Glover MD - Last Filed: 10/19/20 06:53> Family History Family History: Family History Sibling Family history of malignant neoplasm of stomach Mother Family history of malignant neoplasm of breast in first degree relative Cerebrovascular accident <West Glover MD - Last Filed: 10/19/20 06:53> Social History Social History: Social History Smoking packs per day: 1.5 Smoking cigarettes per day: 30.0 Smoking status: Current every day smoker Tobacco type: cigarettes Alcohol intake: current Substance use: never Additional occupation/education comments: Pt works at [employer]. Gender identity (if verbalized by the patient): Male <West Glover MD - Last Filed: 10/19/20 06:53> Exam Const: General: no acute distress and alert <West Glover MD - Last Filed: 10/19/20 06:53> Nutritional Appearance: well nourished <West Glover MD - Last Filed: 10/19/20 06:53> Orientation/consciousness: patient oriented x3 <West Glover MD - Last Filed: 10/19/20 06:53> HENMT: Head: normal to inspection <West Glover MD - Last Filed: 0
--- NOTE | 2020-10-19 03:29 | ECG_ITS ---
Measurements Intervals [place] Rate: 76 P: 69 MI: 187 QRS: 76 QRSD: 104 T: 48 QT: 365 QTc: 411 Interpretive Statements SINUS RHYTHM INCOMPLETE RIGHT BUNDLE BRANCH BLOCK DELAYED PRECORDIAL R/S TRANSITION BASELINE ARTIFACT- I, III BORDERLINE ECG Electronically Signed On 10-19-2020 6:29:36 CDT by Martin Diane D.O.
[2020-10-19 03:45] LABS: Basophils Absolute Auto 0.1 K/mm3 (0.0-0.1); Basophils Percent Auto 1.1 % (0.2-1.2); Eosinophils Absolute Auto 0.5 K/mm3 (0-0.3); Eosinophils Percent Auto 5.4 % (0-4.4); Hematocrit 45.5 % (42.0-52.0); Hemoglobin 15.1 g/dL (14.0-18.0); Immature Granulocyte Absolute 0.02 K/mm3 (0.00-0.031); Immature Granulocyte Percent A 0.2 % (0-0.5); Lymphocytes Percent Auto 34.6 % (18.3-44.2); Mean Corpuscular HGB Conc 33.2 g/dl (32-36); Mean Corpuscular Hemoglobin 31.9 pg (26-34); Mean Platelet Volume 9.6 fl (7.4-10.4); Monocytes Absolute Auto 0.9 K/mm3 (0.1-0.6); Monocytes Percent Auto 10.8 % (2.6-8.5); Neutrophils Percent Auto 47.9 % (45.5-73.1); Platelet Count Result 269 k/mm3 (150-375); Red Blood Count 4.74 M/mm3 (4.6-6.20); Red Cell Distribution Width 13.2 % (11.5-14.5); White Blood Count 8.4 K/mm3 (4.5-10.0)
[2020-10-19 03:54] LABS: INR 0.9
[2020-10-19 03:55] LABS: Anion Gap 8 mmol/L (8-16); Blood Urea Nitrogen 18 mg/dL (9-20); Calcium 9.8 mg/dL (8.4-10.2); Carbon Dioxide 25 mmol/L (22-30); Chloride 108 mmol/L (98-107); Estimated CRCL calculation 88 ml/min; Estimated Glomerular Filt Rate > 60; Glucose 117 mg/dL (75-110); Partial Thromboplastin Time 29.7 SECONDS (22.3-36.8); Potassium 4.1 mmol/L (3.4-5.0); Sodium 141 mmol/L (137-145)
[2020-10-19 04:07] LABS: Troponin I < 0.012 ng/mL (0.000-0.034)
[2020-10-19] MEDS: KETOROLAC 30 MG/ML VIAL (*BKC) IV PUSH (04:09)
[2020-10-19] MEDS: ALBUTEROL SULFATE NEB 2.5 MG/0.5 ML INH 5 MG INHALATION (04:31)
[2020-10-19] MEDS: IPRATROPIUM BR 0.02% INH SOLN 0.5 MG/2.5 ML VIAL INHALATION (04:31)
[2020-10-19 07:26] LABS: Troponin I < 0.012 ng/mL (0.000-0.034)
== END 2020-10-19 08:22 | disposition home or self-care (01) ==
PROVIDERS: Emergency Provider Emergency Medicine; PCP Emergency Medicine
DX: R07.89 Other chest pain (principal); R06.2 Wheezing; M19.90 Unspecified osteoarthritis, unspecified site; K21.9 Gastro-esophageal reflux disease without esophagitis; I10 Essential (primary) hypertension; E78.5 Hyperlipidemia, unspecified
CPT/HCPCS: 36415; 71046; 80048; 84484; 85025; 85610; 85730; 93005; 94640; 96374; 99284; J1885

== ENCOUNTER → 2021-09-06 07:19 | Outpatient (CLI) | payer OTHER, SELFPAY ==
--- NOTE | ~2021-09-06 | US_ITS ---
EXAMINATION: US right upper quadrant DATE: 09/06/2021 07:45 INDICATION: Gallbladder polyp follow-up. TECHNIQUE: Multiple grayscale and Doppler ultrasound images of the right upper quadrant were obtained . COMPARISON: 09/07/2020. FINDINGS: Visualized portions of the pancreas are normal. The liver is normal with normal echogenicit y and echotexture. No surface nodularity. Normal hepatopetal flow in the main portal vein. 2 echogeni c foci are present in the gallbladder, nonmobile and nonshadowing, measuring 3.6 and 4 mm, unchanged from the prior study given interval differences in measurement technique. No wall thickening or peric holecystic fluid. The normal common bile duct measures 0.5. There was no sonographic White sign. The visualized portions of the inferior vena cava are normal. The right kidney measures 10.8 cm. IMPRESSION: 1. Stable gallbladder polyps. If this patient has no risk factors for gallbladder malignancy, no furt her imaging follow-up recommended. Reviewed, dictated and finalized at location K. IMPRESSION: 1. Stable gallbladder polyps. If this patient has no risk factors for gallbladd er malignancy, no further imaging follow-up recommended.
== END ==
PROVIDERS: PCP Emergency Medicine; Visit Provider Emergency Medicine
DX: R91.8 Other nonspecific abnormal finding of lung field (principal); K82.4 Cholesterolosis of gallbladder
CPT/HCPCS: 76705

== ENCOUNTER 2021-09-08 15:16 | Outpatient (CLI) | payer OTHER, SELFPAY ==
--- NOTE | ~2021-09-08 | US_ITS ---
EXAMINATION: US axilla RT INDICATION: Palpable lump of the right axilla TECHNIQUE: Targeted ultrasound of the right axilla was performed in the area of clinical concern COMPARISON: CTs dated 06/17/2019 and 03/11/2015 FINDINGS: There is a 10 mm x 5 mm oval, circumscribed, parallel, hypoechoic mass with posterior acous tic enhancement and no internal vascularity in the skin of the right axilla in the area of clinical c oncern. No definite tract to the skin is identified. This appears to be stable when compared to prior CT examinations. IMPRESSION: 1. Probable sebaceous cyst of the right axilla corresponding to the area of clinical interest. BI-RADS Category 2: Benign finding(s). Reviewed, dictated and finalized at location A. IMPRESSION: 1. Probable sebaceous cyst of the right axilla corresponding to the area of cli nical interest. BI-RADS Category 2: Benign finding(s).
== END 2021-09-08 15:17 ==
PROVIDERS: PCP Emergency Medicine; Visit Provider Emergency Medicine
DX: K82.4 Cholesterolosis of gallbladder (principal); R91.8 Other nonspecific abnormal finding of lung field; R92.8 Other abnormal and inconclusive findings on diagnostic imaging of breast
CPT/HCPCS: 76882

== ENCOUNTER 2022-05-22 05:39 | Emergency (ER) | payer OTHER, SELFPAY ==
--- NOTE | ~2022-05-22 | XR_ITS ---
Portable chest x-ray Comparison: 10/19/2020 Clinical History: Fever, dizziness Findings: Left lower lobe airspace consolidation is present, consistent with pneumonia. Right lung c lear. Cardiomediastinal silhouette is stable. Bones and soft tissues are unremarkable. Impression: Left lower lobe pneumonia. Reviewed, dictated and finalized at location . PAPER REPORTER Impression: Left lower lobe pneumonia.
[2022-05-22 05:40] VITALS: BP 164/100; PULSE 107; RESP 19; TEMP 36.8; O2SAT 97
[2022-05-22] MEDS: SODIUM CHLORIDE 0.9% IV 1,000 ML 150 ML IV CONT (06:06)
[2022-05-22 06:16] LABS: Basophils Absolute Auto 0.1 K/mm3 (0.0-0.1); Basophils Percent Auto 0.5 % (0.2-1.2); Eosinophils Percent Auto 0.2 % (0-4.4); Hematocrit 42.7 % (42.0-52.0); Hemoglobin 14.7 g/dL (14.0-18.0); Immature Granulocyte Absolute 0.08 K/mm3 (0.00-0.031); Immature Granulocyte Percent A 0.6 % (0-0.5); Mean Corpuscular HGB Conc 34.4 g/dl (32-36); Mean Corpuscular Hemoglobin 33.1 pg (26-34); Mean Corpuscular Volume 96.2 fl (80-100); Mean Platelet Volume 9.7 fl (7.4-10.4); Monocytes Absolute Auto 1.4 K/mm3 (0.1-0.6); Monocytes Percent Auto 10.1 % (2.6-8.5); Neutrophils Percent Auto 82.6 % (45.5-73.1); Platelet Count Result 210 k/mm3 (150-375); Red Blood Count 4.44 M/mm3 (4.6-6.20); Red Cell Distribution Width 13.4 % (11.5-14.5); White Blood Count 13.3 K/mm3 (4.5-10.0)
[2022-05-22 06:35] LABS: Alanine Aminotransferase 19 U/L (6-50); Albumin Level 4.4 g/dL (3.5-5.1); Alkaline Phosphatase 80 U/L (38-126); Anion Gap 8 mmol/L (8-16); Aspartate Amino Transferase 24 U/L (17-59); Bilirubin,Total 0.8 mg/dL (0.2-1.3); Blood Urea Nitrogen 13 mg/dL (9-20); Calcium 8.9 mg/dL (8.4-10.2); Carbon Dioxide 22 mmol/L (22-30); Chloride 98 mmol/L (98-107); Estimated CRCL calculation 77 ml/min; Estimated Glomerular Filt Rate > 60; Glucose 122 mg/dL (65-110); Potassium 3.7 mmol/L (3.4-5.0); Sodium 128 mmol/L (137-145)
[2022-05-22 06:36] LABS: Lactic Acid Reflex 0.6 mmol/L (0.7-2.0)
--- NOTE | 2022-05-22 06:48 | ED.FEVER ---
HPI - Fever General Chief Complaint: Fever Stated Complaint: fever Time Seen by Provider: 05/22/22 05:48 Source: patient Mode of arrival: ambulatory Limitations: no limitations History of Present Illness HPI Narrative: 52-year-old with a history of hypertension here with complaints of fever past 1 week. He states that his temperature was 100.1 earlier. He has been taking Tylenol and ibuprofen. He also complains of occasional nonproductive cough. Denies any shortness of breath. No history of nausea, vomiting or abdominal pain. No sick contacts at home. MD elicited complaint: fever and malaise Onset (ago): week(s) (1) Measured temperature: 100.1 C Exacerbating factors: nothing Relieving factors: acetaminophen and ibuprofen Associated symptoms: denies other symptoms Treatments prior to arrival fever: acetaminophen Related Data Home Medications Medication Instructions Recorded Confirmed amlodipine 10 mg tablet 03/28/20 03/28/20 rosuvastatin 10 mg tablet mg 03/28/20 Allergies Allergy/AdvReac Type Severity Reaction Status Date / Time No Known Allergies Allergy Unknown Verified 10/19/20 03:29 Review of Systems Review of Systems: All systems reviewed & are unremarkable except as noted in HPI and below Constitutional: Constitutional: Reports no additional constitutional complaints Eyes: Eyes: Reports no additional eye complaints Cardiovascular: Cardiovascular: Reports no additional cardiovascular complaints Respiratory: Respiratory: Reports as per HPI Gastrointestinal: Gastrointestinal: Reports no additional gastrointestinal complaints Musculoskeletal: Musculoskeletal: Reports no additional musculoskeletal complaints Integumentary/Breasts: Skin/Breast: Reports system reviewed and no additional complaints, except as docu PMFSH Past Medical History Medical History Arthritis Closed right ankle fracture Ganglion cyst behind his right knee GERD (gastroesophageal reflux disease) HTN (hypertension) Hyperlipidemia Sleep apnea Surgical History Surgical History H/O removal of cyst History of hand surgery left tendon repair Family History Family History Sibling Family history of malignant neoplasm of stomach Mother Family history of malignant neoplasm of breast in first degree relative Cerebrovascular accident Social History Social History Smoking packs per day: 1.5 Smoking cigarettes per day: 30.0 Smoking status: Current every day smoker Tobacco type: cigarettes Alcohol intake: current Alcohol use details: Pt drinks two double shots of Fireball and four 16 ounce beers daily. Substance use: never Occupation/Education: occupation Additional occupation/education comments: Pt works at [employer]. Gender identity (if verbalized by the patient): Male Exam Narrative: GENERAL: Well-appearing, well-nourished, and in no acute distress. HEAD: Normocephalic, atraumatic. EYES: PERRLA and EOMI.. NECK: Supple. CHEST: Clear to auscultation. No respiratory distress. HEART: Regular rate and rhythm. No murmur heard. Normal peripheral pulses. ABDOMEN: Soft, nontender, nondistended, normal active bowel sounds. EXTREMITIES: Normal range of motion. No edema. SKIN: Warm, dry, no rash. NEURO: No focal deficits. Alert and oriented x3. PSYCH: Normal mood and affect. Course Course Emergency Course: Patient has been afebrile here upon arrival his lab work shows white count of 13.1, sodium of 128 I did obtain blood cultures we will start IV Levaquin for left lower lobe pneumonia. His SPO2 is 93% on room air. Vital Signs Vital signs: Vital Signs Temperature 36.8 C 05/22/22 05:40 Pulse Rate 107 H 05/22/22 05:40 Respiratory Rate 19 05/22/22 05:40 Blood
[2022-05-22 06:51] LABS: Influenza A QL RT-PCR Negative (Negative); Influenza B QL RT-PCR Negative (Negative); SARS-CoV-2 RNA PCR Negative
[2022-05-22 07:00] VITALS: BP 128/74; PULSE 76; RESP 18; O2SAT 95
[2022-05-22 07:25] LABS: Appearance Urine Clear (Clear); Bilirubin Urine Negative (Negative); Blood Urine 2+ (Negative); Color Urine Yellow (Yellow); Glucose Urine UA Negative (Negative); Ketones Urine 1+ mg/dL (Negative); Leukocyte Esterase Ur Negative LEU/UL (Negative); Nitrate Urine Negative (Negative); Protein Urine Negative (Negative); Urobilinogen Urine 0.2 mg/dL (<2.0); pH Urine 6.5 (5.0-9.0)
[2022-05-22 07:49] LABS: Bacteria Urine Trace /hpf; WBC Urine 0-3 /hpf
[2022-05-22 08:00] LABS: Add Urine Microscopic? YES
[2022-05-22 08:07] VITALS: BP 129/81; PULSE 86; RESP 19; O2SAT 97
== END 2022-05-22 08:47 | disposition home or self-care (01) ==
PROVIDERS: Emergency Provider Family Medicine; PCP Emergency Medicine
DX: J18.9 Pneumonia, unspecified organism (principal); E87.1 Hypo-osmolality and hyponatremia; Z20.822 Contact with and (suspected) exposure to COVID-19; I10 Essential (primary) hypertension; E78.5 Hyperlipidemia, unspecified; M19.90 Unspecified osteoarthritis, unspecified site; K21.9 Gastro-esophageal reflux disease without esophagitis; G47.30 Sleep apnea, unspecified; F17.210 Nicotine dependence, cigarettes, uncomplicated
CPT/HCPCS: 36415; 71045; 80053; 81001; 83605; 85025; 87040; 87636; 96361; 96365; 96366; 99284; J1956; J7030

== ENCOUNTER 2022-08-31 10:42 | Emergency (ER) | payer OTHER, SELFPAY ==
[2022-08-31 10:50] VITALS: BP 152/83; PULSE 80; RESP 16; TEMP 36.9; O2SAT 99
--- NOTE | 2022-08-31 11:08 | ED.DENTAL ---
HPI - Dental/Oral General Chief complaint: Dental/Oral Stated complaint: Dental/Oral Time Seen by Provider: 08/31/22 11:08 Source: patient, RN notes reviewed and old records reviewed Mode of arrival: ambulatory Limitations: no limitations History of Present Illness HPI Narrative: 52-year-old male presents to the [facility] with dental pain. Pain and swelling noted to the right lower jaw. Patient states that started a couple of days ago. No treatment prior to arrival. Onset (ago): day(s) Related Data Home Medications Medication Instructions Recorded Confirmed amlodipine 10 mg tablet 10 mg DIRECTED 03/28/20 08/31/22 rosuvastatin 10 mg tablet 10 mg DIRECTED 03/28/20 08/31/22 Allergies Allergy/AdvReac Type Severity Reaction Status Date / Time No Known Allergies Allergy Unknown Verified 10/19/20 03:29 Review of Systems Review of Systems: All systems reviewed & are unremarkable except as noted in HPI and below Constitutional: Constitutional: Reports no additional constitutional complaints Eyes: Eyes: Reports no additional eye complaints ENT: Reports as per HPI Cardiovascular: Cardiovascular: Reports no additional cardiovascular complaints, Denies chest pain and Denies dyspnea Respiratory: Respiratory: Reports no additional respiratory complaints, Denies chest congestion, Denies cough and Denies dyspnea Gastrointestinal: Gastrointestinal: Reports no additional gastrointestinal complaints, Denies abdominal pain, Denies nausea and Denies vomiting Musculoskeletal: Musculoskeletal: Reports no additional musculoskeletal complaints Integumentary/Breasts: Skin/Breast: Reports system reviewed and no additional complaints, except as docu Neurologic: Reports system reviewed and no additional complaints, except as documented Psychiatric: Psychiatric: Reports no additional psychiatric complaints Allergic/Immunologic: Allergic/Immunologic: Reports no additional allergic/immunologic complaints [facility] Past Medical History Medical History Arthritis Closed right ankle fracture Ganglion cyst behind his right knee GERD (gastroesophageal reflux disease) HTN (hypertension) Hyperlipidemia Sleep apnea Surgical History Surgical History H/O removal of cyst History of hand surgery left tendon repair Family History Family History Sibling Family history of malignant neoplasm of stomach Mother Family history of malignant neoplasm of breast in first degree relative Cerebrovascular accident Social History Social History Smoking packs per day: 1.5 Smoking cigarettes per day: 30.0 Smoking status: Current every day smoker Tobacco type: cigarettes Alcohol intake: current Alcohol use details: Pt drinks two double shots of Fireball and four 16 ounce beers daily. Substance use: never Occupation/Education: occupation Additional occupation/education comments: Pt works at [employer]. Gender identity (if verbalized by the patient): Male Comments At the time of my signature, I reviewed and agree with the nursing past medical, surgical, social, and family history. There is no relevant family history pertinent to the patient complaint. Exam Const: General: cooperative, no acute distress, well developed, alert, uncomfortable and well nourished Nutritional Appearance: well nourished Orientation/consciousness: patient oriented x3 Limitations: no limitations HENMT: Head: normal to inspection Ears: hearing grossly normal bilaterally and external ears normal Face/Nose/Sinus: Normal external nose present, Normal nares present, Normal nasal mucous membranes and turbinates present and normal facial exam Face and sinus: normal facial exam Mouth: Yes Normal oral and palatal mucosa present,
== END 2022-08-31 11:18 | disposition home or self-care (01) ==
PROVIDERS: Emergency Provider Nurse Practitioner; PCP Emergency Medicine
DX: K04.7 Periapical abscess without sinus (principal); F17.210 Nicotine dependence, cigarettes, uncomplicated; M19.90 Unspecified osteoarthritis, unspecified site; K21.9 Gastro-esophageal reflux disease without esophagitis; I10 Essential (primary) hypertension; E78.5 Hyperlipidemia, unspecified
CPT/HCPCS: 99213; G0463

== ENCOUNTER 2023-07-19 06:22 | Emergency (ER) | payer OTHER, SELFPAY ==
--- NOTE | ~2023-07-19 | CT_ITS ---
EXAMINATION: CTA brain carotid DATE: 07/19/2023 07:48 INDICATION: Dizziness. TECHNIQUE: Computed tomographic angiography (CTA) of the head was performed with 100 mL Omnipaque-350 intravenous contrast. CTA of the neck was performed with intravenous contrast. Automated exposure co ntrol and iterative reconstruction technique were employed. The dose-length product was 1064.52 mGy-c m. Maximum intensity projection and volume rendered 3D-reconstructions were created by the technologi st on a separate workstation. COMPARISON: Head CT 07/19/2023 FINDINGS: HEAD CTA: There is no intracranial hemorrhage, acute infarction, or abnormal intracranial mass lesion . The ventricles are normal in size. There is mucosal thickening in the paranasal sinuses. The orbits are normal. There is a trace left mastoid effusion. The vertebral arteries are codominant. There is no significant stenosis of basilar artery or the posterior cerebral arteries. The posterior communica ting arteries are normal. There is no significant stenosis of the intracranial internal carotid arter ies or anterior or middle cerebral arteries. Left A1 anterior cerebral artery segment is small, a nor mal variant. Anterior communicating artery is normal. There is no aneurysm. NECK CTA: There is mild emphysema. There are no pathologically enlarged lymph nodes. There is an 8 mm cyst with calcifications in left palatine tonsils. There is no significant stenosis of the vertebral arteries. There is plaque in the proximal internal carotid arteries. There is 0% stenosis of the pro ximal right internal carotid artery relative to normal distal artery lumen diameter (NASCET criteria) . There is 0% stenosis of the proximal left internal carotid artery relative to normal distal artery lumen diameter. There is mild cervical spondylosis. IMPRESSION: 1. Normal brain. 2. No aneurysm or significant intracranial arterial stenosis. 3. 0% stenosis of the proximal internal carotid arteries relative to normal distal artery lumen diame ters (NASCET criteria). Reviewed, dictated and finalized at location E. IMPRESSION: 1. Normal brain. 2. No aneurysm or significant intracranial arterial stenosis. 3. 0% stenosis of the proximal internal carotid arteries relative to normal dis reyna artery lumen diameters (NASCET criteria).
--- NOTE | ~2023-07-19 | XR_ITS ---
EXAMINATION: XR chest 1V DATE: 07/19/2023 06:52 INDICATION: Weakness. TECHNIQUE: A single frontal view of the chest was obtained. COMPARISON: Chest single view 05/22/2022, chest CT 06/17/2019 FINDINGS: There is no pneumonia, pleural effusion, or pneumothorax. The heart size is normal. IMPRESSION: 1. No acute cardiopulmonary disease. Reviewed, dictated and finalized at location E.
--- NOTE | ~2023-07-19 | CT_ITS ---
EXAMINATION: CT brain wo con DATE: 07/19/2023 06:48 INDICATION: Dizziness. Tremor. TECHNIQUE: Computed tomography (CT) of the head was performed without intravenous contrast. The mA wa s adjusted according to patient size. Iterative reconstruction technique was employed. The dose-lengt h product was 681.00 mGy-cm. COMPARISON: None FINDINGS: There is no intracranial hemorrhage, acute infarction, or abnormal intracranial mass lesion . The ventricles are normal in size. There is mucosal thickening in the paranasal sinuses. The orbits are normal. There is a trace left mastoid effusion. IMPRESSION: 1. Normal brain. Reviewed, dictated and finalized at location E. IMPRESSION: 1. Normal brain.
[2023-07-19 06:29] VITALS: BP 170/108; PULSE 98; RESP 15; TEMP 36.6; O2SAT 96
--- NOTE | 2023-07-19 06:34 | ECG_ITS ---
Measurements Intervals [place] Rate: 94 P: 58 SC: 186 QRS: 60 QRSD: 106 T: 28 QT: 337 QTc: 423 Interpretive Statements SINUS RHYTHM WITH MARKED SINUS ARRHYTHMIA POSSIBLE LEFT ATRIAL ENLARGEMENT INCOMPLETE RIGHT BUNDLE BRANCH BLOCK BASELINE ARTIFACT- I, II, III, AVR, AVL, AVF, V1-V2, V4-V6 BORDERLINE ECG COMPARED TO ECG 10/19/2020 03:27:40 SINUS ARRHYTHMIA NOW PRESENT Electronically Signed On 07-19-2023 7:38:56 CDT by Martin Diane D.O.
[2023-07-19 06:44] LABS: Basophils Absolute Auto 0.1 K/mm3 (0.0-0.1); Basophils Percent Auto 0.8 % (0.2-1.2); Eosinophils Absolute Auto 0.3 K/mm3 (0-0.3); Hematocrit 44.9 % (42.0-52.0); Immature Granulocyte Absolute 0.05 K/mm3 (0.00-0.031); Immature Granulocyte Percent A 0.5 % (0-0.5); Lymphocytes Absolute Auto 2.74 K/mm3 (0.9-3.2); Lymphocytes Percent Auto 27.2 % (18.3-44.2); Mean Corpuscular HGB Conc 33.4 g/dl (32-36); Mean Corpuscular Volume 98.7 fl (80-100); Mean Platelet Volume 9.6 fl (7.4-10.4); Monocytes Absolute Auto 0.7 K/mm3 (0.1-0.6); Monocytes Percent Auto 7.1 % (2.6-8.5); Neutrophils Absolute Auto 6.2 K/mm3 (1.3-6.7); Neutrophils Percent Auto 61.4 % (45.5-73.1); Platelet Count Result 273 k/mm3 (150-375); Red Blood Count 4.55 M/mm3 (4.6-6.20); Red Cell Distribution Width 13.7 % (11.5-14.5); White Blood Count 10.1 K/mm3 (4.5-10.0)
[2023-07-19 06:57] LABS: INR 0.8; Prothrombin Time 11.8 Seconds (11.1-14.7)
[2023-07-19 06:58] LABS: Alanine Aminotransferase 31 U/L (6-50); Albumin Level 4.9 g/dL (3.5-5.1); Alkaline Phosphatase 84 U/L (38-126); Anion Gap 8 mmol/L (8-16); Aspartate Amino Transferase 33 U/L (17-59); Bilirubin,Total 0.4 mg/dL (0.2-1.3); Blood Urea Nitrogen 19 mg/dL (9-20); Carbon Dioxide 23 mmol/L (22-30); Chloride 107 mmol/L (98-107); Estimated CRCL calculation 83 ml/min; Estimated Glomerular Filt Rate > 60; Glucose 117 mg/dL (65-110); Partial Thromboplastin Time 30.2 Seconds (22.3-36.8); Potassium 4.3 mmol/L (3.4-5.0); Sodium 138 mmol/L (137-145)
[2023-07-19 07:09] LABS: Troponin I < 0.012 ng/mL (0.000-0.034)
--- NOTE | 2023-07-19 07:24 | ED.GENADULT ---
HPI - General Adult General Chief complaint: Unspecified Stated complaint: l arm numb, dizzy, lightheaded, lkw 0300 Time Seen by Provider: 07/19/23 07:04 History of Present Illness HPI narrative: Pt awoke with dizziness this morning and says he was unsteady on his feet trying to walk. Pt had posterior EWING yesterday but this resolved. Pt had some numbness and tingling in his 4th and fifth fingers of his left hand which also resolved. Pt denies weakness or neck pain. Related Data Home Medications Medication Instructions Recorded Confirmed amlodipine 10 mg tablet 10 mg DIRECTED 03/28/20 08/31/22 rosuvastatin 10 mg tablet 10 mg DIRECTED 03/28/20 08/31/22 Allergies Allergy/AdvReac Type Severity Reaction Status Date / Time No Known Allergies Allergy Unknown Verified 07/19/23 06:33 Review of Systems Review of Systems: All systems reviewed & are unremarkable except as noted in HPI and below PMFSH Past Medical History Medical History Arthritis Closed right ankle fracture Ganglion cyst behind his right knee GERD (gastroesophageal reflux disease) HTN (hypertension) Hyperlipidemia Sleep apnea Surgical History Surgical History H/O removal of cyst History of hand surgery left tendon repair Family History Family History Sibling Family history of malignant neoplasm of stomach Mother Family history of malignant neoplasm of breast in first degree relative Cerebrovascular accident Social History Social History Smoking packs per day: 1.5 Smoking cigarettes per day: 30.0 Smoking status: Current every day smoker Tobacco type: cigarettes Alcohol intake: current Alcohol use details: Pt drinks two double shots of Fireball and four 16 ounce beers daily. Substance use: never Occupation/Education: occupation Additional occupation/education comments: Pt works at [employer]. Gender identity (if verbalized by the patient): Male Exam Const: General: cooperative, healthy appearing and no acute distress Nutritional Appearance: average body habitus Orientation/consciousness: patient oriented x3 Limitations: no limitations HENMT: Head: normal to inspection Throat: posterior oropharynx normal Eyes: Conjunctivae: conjunctivae normal EOM: EOMs intact bilaterally Neck: Neck: normal visual inspection, full ROM, no lymphadenopathy and no meningeal signs Resp: Effort & Inspection: normal respiratory effort Auscultation: clear to auscultation bilaterally Cardio: Rate: regular rate Rhythm: regular rhythm GI: GI Palp: No abdominal tenderness Auscultation: normal bowel sounds Skin: General skin exam: normal color and no rashes or lesions noted Neuro: General: patient oriented x3, moves all extremities, Normal light touch and pain sensation, no focal motor deficits, CN's II-XI intact bilaterally and other (dizziness reproduced somewhat with movement of head and improves when still) Cognition (Neuro): normal cognition Speech: normal speech Motor exam (neuro): 5/5 motor strength present throughout Sensory Exam: normal sensation Extrem: General: normal to inspection, full ROM, capillary refill normal and no clubbing, cyanosis or edema Psych: Appearance: grossly normal Mental Status: mental status grossly normal Speech and movement: Normal speech and movement present Affect: normal affect Attitude: cooperative Thought process: Normal thought process present Thought content: Yes Normal thought content present Insight: Good insight present (Psych) Judgement: Good judgement present (Psych) Course Vital Signs Vital signs: Vital Signs Temperature 97.8 F 07/19/23 06:29 Pulse Rate 98 07/19/23 06:29 Respiratory Rate 15 07/19/23 06:29 Blood Pressure 170/108 H 0
[2023-07-19] MEDS: MECLIZINE HCL 25 MG TABLET 50 MG PO (07:48)
[2023-07-19 07:49] VITALS: BP 170/108; PULSE 87; RESP 23; O2SAT 96
[2023-07-19 09:17] VITALS: BP 149/74; PULSE 98; RESP 33; O2SAT 100
== END 2023-07-19 09:20 | disposition home or self-care (01) ==
PROVIDERS: Emergency Medicine; Emergency Provider Emergency Medicine; PCP Emergency Medicine
DX: R42 Dizziness and giddiness (principal); I10 Essential (primary) hypertension; E78.5 Hyperlipidemia, unspecified; G47.30 Sleep apnea, unspecified; M19.90 Unspecified osteoarthritis, unspecified site; K21.9 Gastro-esophageal reflux disease without esophagitis; F17.210 Nicotine dependence, cigarettes, uncomplicated
CPT/HCPCS: 36415; 70450; 70496; 70498; 71045; 80053; 84484; 85025; 85610; 85730; 93005; 99284; A9270; Q9967

== ENCOUNTER 2023-12-16 05:57 | Emergency (ER) | payer OTHER, SELFPAY ==
[2023-12-16] VITALS (17 sets, daily range): BP systolic 127–163; BP diastolic 79–100; PULSE 54–98; RESP 13–35; TEMP 36.6; O2SAT 94–100
--- NOTE | ~2023-12-16 | XR_ITS ---
EXAMINATION: XR chest 2V DATE: 12/16/2023 06:30 INDICATION: Chest pain. Shortness of breath. TECHNIQUE: Frontal and lateral views of the chest were obtained. COMPARISON: Chest single view 07/19/2023 FINDINGS: There is no pneumonia, pleural effusion, or pneumothorax. The heart size is normal. IMPRESSION: 1. No acute cardiopulmonary disease. Reviewed, dictated and finalized at location A.
--- NOTE | 2023-12-16 06:02 | ECG_ITS ---
Test Date: 2023-12-16 06:04:07 Measurements Intervals [place] Rate: 78 P: 65 AR: 167 QRS: 68 QRSD: 106 T: 55 QT: 354 QTc: 404 Interpretive Statements SINUS RHYTHM WITH OCCASIONAL VENTRICULAR PREMATURE COMPLEXES POSSIBLE LEFT ATRIAL ENLARGEMENT [-0.1mV P-WAVE IN V1/V2] No previous ECG available for comparison Electronically Signed On 12-16-2023 14:45:39 CDT by Sajan Lopez M.D.
[2023-12-16] MEDS: ASPIRIN 81 MG CHEWABLE TABLET 324 MG PO (06:08)
[2023-12-16 06:18] LABS: Basophils Absolute Auto 0.1 K/mm3 (0.0-0.1); Basophils Percent Auto 0.5 % (0.2-1.2); Eosinophils Absolute Auto 0.2 K/mm3 (0-0.3); Eosinophils Percent Auto 1.4 % (0-4.4); Hemoglobin 16.2 g/dL (14.0-18.0); Immature Granulocyte Absolute 0.09 K/mm3 (0.00-0.031); Immature Granulocyte Percent A 0.7 % (0-0.5); Lymphocytes Absolute Auto 4.95 K/mm3 (0.9-3.2); Lymphocytes Percent Auto 40.7 % (18.3-44.2); Mean Corpuscular HGB Conc 34.5 g/dl (32-36); Mean Corpuscular Hemoglobin 33.5 pg (26-34); Mean Corpuscular Volume 97.1 fl (80-100); Mean Platelet Volume 9.6 fl (7.4-10.4); Monocytes Absolute Auto 1.1 K/mm3 (0.1-0.6); Neutrophils Absolute Auto 5.8 K/mm3 (1.3-6.7); Neutrophils Percent Auto 47.7 % (45.5-73.1); Platelet Count Result 295 k/mm3 (150-375); Red Blood Count 4.84 M/mm3 (4.6-6.20); Red Cell Distribution Width 13.3 % (11.5-14.5); White Blood Count 12.2 K/mm3 (4.5-10.0)
[2023-12-16 06:25] LABS: Alanine Aminotransferase 33 U/L (6-50); Albumin Level 4.9 g/dL (3.5-5.1); Alkaline Phosphatase 87 U/L (38-126); Anion Gap 13 mmol/L (4-12); Aspartate Amino Transferase 30 U/L (17-59); Bilirubin,Total 0.7 mg/dL (0.2-1.3); Blood Urea Nitrogen 18 mg/dL (9-20); Calcium 9.6 mg/dL (8.4-10.2); Carbon Dioxide 23 mmol/L (22-30); Chloride 100 mmol/L (98-107); Estimated CRCL calculation 78 ml/min; Estimated Glomerular Filt Rate > 60; Glucose 114 mg/dL (65-110); Lipase 120 U/L (23-300); Potassium 3.7 mmol/L (3.4-5.0); Sodium 136 mmol/L (137-145)
[2023-12-16 06:33] LABS: INR 0.9; Prothrombin Time 12.6 Seconds (11.1-14.7)
[2023-12-16 06:34] LABS: Partial Thromboplastin Time 28.1 Seconds (22.3-36.8)
[2023-12-16 06:36] LABS: Troponin I < 0.012 ng/mL (0.000-0.034)
--- NOTE | 2023-12-16 07:40 | ED.GENADULT ---
HPI - General Adult General Chief complaint: Chest Pain Stated complaint: palpitations Time Seen by Provider: 12/16/23 06:19 History of Present Illness HPI narrative: Patient is a 53-year-old male who presents ER with palpitations and dizziness. Reports he was in bed and began feeling like his heart was skipping a beat. He began feel short of breath and nervous. He has history of PVCs. He is on hypertension medication as well as cholesterol medication. No fevers or chills or sweats. No chest pain. Did not feel like his heart was racing. Patient also reports that he is feeling some dizziness. He feels off balance and makes and anxious. He reports he has had this for a long time but is worse currently. Sometimes he will be at work and he will turn in feel like he is going to fall over but will go away in a 2nd. Sometimes it can happen daily, sometimes it can be absent for weak. No numbness or weakness or slurred speech. Related Data Home Medications Medication Instructions Recorded Confirmed amlodipine 10 mg tablet 10 mg DIRECTED 03/28/20 08/31/22 rosuvastatin 10 mg tablet 10 mg DIRECTED 03/28/20 08/31/22 Allergies Allergy/AdvReac Type Severity Reaction Status Date / Time No Known Allergies Allergy Unknown Verified 07/19/23 06:33 Review of Systems Review of Systems: All systems reviewed & are unremarkable except as noted in HPI and below Constitutional: Constitutional: Reports no additional constitutional complaints ENT: Reports system reviewed and no additional complaints, except as documented Cardiovascular: Cardiovascular: Denies chest pain, Denies rapid heart rate and Denies radiating jaw, neck or arm pain Comments: Palpitations Respiratory: Respiratory: Reports no additional respiratory complaints Musculoskeletal: Musculoskeletal: Reports no additional musculoskeletal complaints [facility] Past Medical History Medical History Arthritis Closed right ankle fracture Ganglion cyst behind his right knee GERD (gastroesophageal reflux disease) HTN (hypertension) Hyperlipidemia Sleep apnea Surgical History Surgical History H/O removal of cyst History of hand surgery left tendon repair Family History Family History Sibling Family history of malignant neoplasm of stomach Mother Family history of malignant neoplasm of breast in first degree relative Cerebrovascular accident Social History Social History Smoking packs per day: 1.5 Smoking cigarettes per day: 30.0 Smoking status: Current every day smoker Tobacco type: cigarettes Alcohol intake: current Alcohol use details: Pt drinks two double shots of Fireball and four 16 ounce beers daily. Substance use: never Occupation/Education: occupation Additional occupation/education comments: Pt works at [employer]. Gender identity (if verbalized by the patient): Male Exam Narrative: GENERAL: Well-appearing, well-nourished, and in no acute distress. HEAD: Normocephalic, atraumatic. EYES: PERRL and EOMI. ENT: Mucous membranes moist. TMs normal bilaterally. Right ear pops with your manipulation. CHEST: Poor air movement in the lungs with some wheezing at the bases. HEART: Regular rate and rhythm. Occasional dropped beat. Correlates with PVC on monitor. Normal peripheral pulses. EXTREMITIES: Normal range of motion. No edema. SKIN: Warm, dry, no rash. NEURO: Alert and oriented x3. PSYCH: Normal mood and affect. Course Vital Signs Vital signs: Vital Signs Temperature 97.9 F 12/16/23 06:02 Pulse Rate 98 12/16/23 06:02 Respiratory Rate 35 H 12/16/23 06:02 Blood Pressure 163/100 H 12/16/23 06:02 Pulse Oximetry 100 12/16/23 06:02 Oxygen Delivery Room Air 12/16/23 06:02
[2023-12-16 07:52] LABS: Magnesium 2.4 mg/dL (1.6-2.3)
[2023-12-16] MEDS: IPRATROPIUM 0.5 MG/ALBUTEROL SULFATE 2.5 MG AMPUL.NEB 3 ML INHALATION (07:52)
[2023-12-16] MEDS: MECLIZINE HCL 25 MG TABLET PO (08:18)
--- NOTE | 2023-12-16 08:51 | ECG_ITS ---
Test Date: 2023-12-16 08:54:25 Measurements Intervals [place] Rate: 52 P: 53 MS: 185 QRS: 52 QRSD: 108 T: 43 QT: 406 QTc: 378 Interpretive Statements SINUS BRADYCARDIA WITH OCCASIONAL VENTRICULAR PREMATURE COMPLEXES POSSIBLE RIGHT VENTRICULAR CONDUCTION DELAY [RSR (QR) IN V1/V2] Compared to ECG 12/16/2023 06:04:07 NO SIGNIFICANT CHANGES Electronically Signed On 12-16-2023 15:12:11 CDT by Sajan Lopez M.D.
[2023-12-16 09:17] LABS: Troponin I < 0.012 ng/mL (0.000-0.034)
== END 2023-12-16 10:20 | disposition home or self-care (01) ==
PROVIDERS: Emergency Medicine; Emergency Provider Emergency Medicine; PCP Emergency Medicine
DX: R42 Dizziness and giddiness (principal); I49.3 Ventricular premature depolarization; I10 Essential (primary) hypertension; E78.5 Hyperlipidemia, unspecified; G47.30 Sleep apnea, unspecified; K21.9 Gastro-esophageal reflux disease without esophagitis; M19.90 Unspecified osteoarthritis, unspecified site; F17.210 Nicotine dependence, cigarettes, uncomplicated; R94.31 Abnormal electrocardiogram [ECG] [EKG]; R00.1 Bradycardia, unspecified
CPT/HCPCS: 36415; 71046; 80053; 83690; 83735; 84484; 85025; 85610; 85730; 93005; 94640; 99284; A9270

== ENCOUNTER 2024-05-18 11:21 | Outpatient (CLI) | payer OTHER, SELFPAY ==
--- NOTE | ~2024-05-18 | XR_ITS ---
Lumbosacral Spine: AP and lateral views Clinical History: Pain Findings: The normal lordotic curve is maintained. Possible L5 pars interarticularis defects bilatera lly, with grade 1 anterolisthesis of L5 over S1. There is moderate to advanced degenerative disc narr owing at L4-L5 and L5-S1. There is moderate facet arthropathy from L4 through S1. The sacroiliac join ts are normally outlined. Impression: Suspected L5 pars interarticularis defects of L5, with grade 1 anterolisthesis of L5 over S1. Moderate to advanced degenerative change from L4 through S1, as detailed above. Reviewed, dictated and finalized at location . 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 Moderate to advanced degenerative change from L4 through S1, as detailed above.
== END 2024-05-18 11:22 | disposition home or self-care (01) ==
PROVIDERS: PCP Emergency Medicine; Visit Provider Chiropractor
DX: M51.369 Other intervertebral disc degeneration, lumbar region without mention of lumbar back pain or lower extremity pain (principal)
CPT/HCPCS: 72100

== ENCOUNTER 2024-07-14 08:09 | Emergency (ER) | payer OTHER, SELFPAY ==
[2024-07-14 08:14] VITALS: BP 163/103; PULSE 80; RESP 16; TEMP 36.8; O2SAT 97
[2024-07-14 08:18] VITALS: BP 158/97; PULSE 82
--- OUTSIDE RECORDS SUMMARY | 2024-07-14 08:18 | XMS_ITS | Referral Summary ---
Author Organization [facility] [address] Address [address] [place] [address] Care Team Providers Care Senior Net C Developer Name Role Phone Devon Wilkins MD Primary Care Provider Allergies No known active allergies Medications HYDROcodone-acetam inophen (NORCO) 7.5-325 mg per tabletIndications: Pain 12/01/2016 Active ibuprofen (ADVIL,MOTRIN) 800 mg tablet 12/01/2016 Active olmesartan (BENICAR) 20 mg tablet 12/01/2016 Active Active Problems No known active problems Social History Tobacco Use Types Packs/Day Years Used Date Smoking Tobacco: Never Smokeless Tobacco: Never Alcohol Use Standard Drinks/Week Comments No 0 (1 standard drink = 0.6 oz pur e alcohol) Personal Safety Answer Date Recorded Getting School Help Needed Not on file 07/10 Sex and Gender Information Value Date Recorded Sex Assigned at Not on file 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 Gender Identity Not on file Sexual Orientation Not on file Last Filed Vital Signs Vital Sign Reading Time Taken Comments Blood Pressure 157/87 12/15/2016 2:30 PM CDT Pulse 77 12/15/2016 2:30 PM CDT Temperature - - Respiratory Rate - - Oxygen Saturation - - Inhaled Oxygen Concentration - - Weight 86.2 kg (190 lb) 12/15/2016 2:30 PM CDT Height 167.6 cm (5' 6 ) 12/15/2016 2:30 PM CDT Body Mass Index 30.67 12/15/2016 2:30 PM CDT Plan of Treatment Not on file Insurance [employer] Care Teams Senior Net C Developer Relationship Specialty Start Date End Date Devon Wilkins MD PCP - General Family Medicine 12/09/16
--- OUTSIDE RECORDS SUMMARY | 2024-07-14 08:18 | XMS_ITS | Clinical Summary ---
Author Organization [facility] [address] Address [address] [place] [address] Care Team Providers Care Meat Curer Name Role Phone Devon Wilkins MD Primary Care Provider Allergies No known active allergies Medications HYDROcodone-acetam inophen (NORCO) 7.5-325 mg per tabletIndications: Pain 12/01/2016 Active ibuprofen (ADVIL,MOTRIN) 800 mg tablet 12/01/2016 Active olmesartan (BENICAR) 20 mg tablet 12/01/2016 Active Active Problems No known active problems Surgical History Surgery Date Site/Laterality Comments CYST REMOVAL FLUORO GUIDED ASPIRATION KNEE RIGHT Social History Tobacco Use Types Packs/Day Years Used Date Smoking Tobacco: Never Smokeless Tobacco: Never Alcohol Use Standard Drinks/Week Comments No 0 (1 standard drink = 0.6 oz pur e alcohol) Personal Safety Answer Date Recorded Getting School Help Needed Not on file 07/10 Sex and Gender Information Value Date Recorded Sex Assigned at Not on file 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
--- OUTSIDE RECORDS SUMMARY | 2024-07-14 08:18 | XMS_ITS | CONTINUITY OF CARE DOCUMENT ---
Author Name sukhjinder slaughter Address Unknown Organization [facility] Address [address] [place] [address] Phone [phone] Care Team Providers Care Electrical Calibrator Name Role Phone Babs MARI, Jose Unavailable MAI MARI, COURTNEY Unavailable [phone] COURTNEY ONEILL MD Unavailable [phone] PROBLEMS Condition Status Date Provider Notes Irregular pulse active Alyssia Robert Chest pain-type to be determined active Dom Brice MD Dizziness active Jose Brice MD Hypertension active ? Jose Brice MD Snoring active Jose rBice MD Panic attack active Jose Brice MD Hyperlipidemia active ? Jose Brice MD Anxiety active Jose Brice MD Tobacco abuse active Jose Brice MD Palpitations active Jose Brice MD Family History of CVA or Stroke: active ? Dom Brice MD Family History of CVA or Stroke: active ? Dom Brice MD Family History of Hypertension: active ? Jonas Brice MD ENCOUNTERS Date Type Provider Location Encounter Diag nosis 05/20 - 05/22 In-person encounter Office Visit Jose Brice MD [facility] 06/25 - 07/01 In-person encounter Office Visit Jose Brice MD [facility] 07/24 - 07/24 In-person encounter Office Visit Jose Brice MD [facility] 06/20 - 06/20 In-person encounter Office Visit Alyssa Bowen MD [facility] 12/14 - 12/14 In-person encounter Office Visit Jose Brice MD [facility] 11/16 - 11/16 In-person encounter Office Visit Jose Brice MD [facility] Family History of Hypertension:Family Hi story of CVA or Stroke:Family History of CVA or Stroke:PalpitationsChest pain-type to be determinedTobacco abuseDizzinessAnxietyHyperlipidemiaHypertensionPanic attackSnoring VITAL SIGNS Date Observation Value Provider Body Mass Index (Ratio) 27.44 kg/m2 Jonas Brice MD blood pressure, diastolic 80 mm[Hg] Nellie nkLog blood pressure, systolic 130 mm[Hg] [facility], cuff size large Tr tommy Myrick blood pressure, diastolic 80 mm[Hg] Tr tommy Myrick blood pressure, systolic 130 mm[Hg] Try kingsley Myrick respiratory rate E&M 20 /min Cleokingslye Myrick oxygen saturation, oximetry 98 % Cleokingsley Myrick pulse rate 90 /min Cleokingsley Myrick weight E&M 170 [lb_av] Cleokingsley Myrick height E&M 66 [in_i] Shirley Myrick Body Mass Index (Ratio) 27.11 kg/m2 Jonas Brice MD blood pressure, cuff size large Ke dottyi Isabel blood pressure, diastolic 80 mm[Hg] Ke dottyi Isabel blood pressure, systolic 138 mm[Hg] Ashley Hall oxygen saturation, oximetry 98 % Millie Hall respiratory rate E&M 16 /min Millie navarro pulse rate 79 /min Millie howard weight E&M 168 [lb_av] Millieclaudia Amin lder height E&M 66 [in_i] Millie Brennan [facility] Body Mass Index (Ratio) 26.79 kg/m2 Jonas Brice MD temperature site temporal Thania Tank sley temperature E&M 98.0 [degF] Thania Tanks isai blood pressure, diastolic 86 mm[Hg] Cy ntkaylaa Cantrell blood pressure, systolic 140 mm[Hg] Candace rachana Cantrell blood pressure, cuff size regular Cy cass Cantrell pulse rate 70 /min Rebekahrachana Feliciano l respiratory rate E&M 16 /min Rebekah Cantrell oxygen saturation, oximetry 98 % Rebekah Cantrell weight E&M 166 [lb_av] Rebekah Campbel l height E&M 66 [in_i] Rebekah Campbel l Body Mass Index (Ratio) 27.27 kg/m2 Moise Bowen MD blood pressure, resting No Tons lanier Morse blood pressure, diastolic 87 mm[Hg] To nsha Morse blood pressure, systolic 153 mm[Hg] Ton sha Morse respiratory rate E&M 16 /min Tonsha Morse oxygen saturation, oximetry 98 % Tonsha Morse pulse rate 98 /min Tonsha Morse weight E&M 169 [lb_av] Tonsha Morse height E&M 66 [in_i] Tonsha Morse Body Mass Index (Ratio) 27.60 kg/m2 Jonas Brice MD blood pressure, diastolic 90 mm[Hg] Da digna Robert blood pressure, systolic 158 mm[Hg] Dac ia Robert oxygen saturation, oximetry 98 % Alyssia Robert respiratory rate E&M 16 /min Alyssia V oss pulse rate 78 /min Alyssia Robert weight E&M 171 [lb_av] Alyssia Robert height E&M 66 [in_i] Alyssia [place] Body Mass Index (Ratio) 27.44 kg/m2 Jonas Brice MD blood pressure, diastolic 82 mm[Hg] Da digna Robert blood pressure, systolic 152 mm[Hg] Dac ia Robert oxygen saturation, oximetry 98 % Alyssia Robert respiratory rate E&M 16 /min Alyssia V oss pulse rate 78 /min Alyssia Robert weight E&M 170 [lb_av] Alyssia [place] height E&M 66 [in_i] Alyssia [place] ALLERGIES No Known Drug Allergies HISTORY OF MEDICATION USE Medication Status Instructions Dates Provider Indications Com ments VICODIN ES 7.5-300 MG ORAL TABLET active Take 1 as needed 4 Alyssia Robert BUSPIRONE HCL 7.5 MG ORAL TABLET completed take one twice daily 4 - 5 Tonsha Morse amlodipine 10 mg tablet active Take once a day 4 [facility] SIMVASTATIN 20 MG ORAL TABLET completed take one tablet daily - 5 Tonsha Morse SOCIAL HISTORY Date Observation Value Provider social history E&M Marital Statu s: C 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 P atient has been counseled to quit. 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 P atient has been counseled to quit. 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 P atient has been counseled to quit. 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 Jose Brice MD alcohol use, type beer Alyssia Robert alcohol use, average drinks per day 1 /d Alyssia Robert alcohol use yes Alyssia Robert smoking history, tot al pack/day 1 Alyssia Robert number of years as a smoker 25 a Alyssia Robert cigarette use yes Alyssia Robert smoking status Current every day smoker D acia Robert FAMILY HISTORY Family Member Condition Maternal Grandmother Family History of D iabetes: Maternal Grandmother Family History of C VA or Stroke: Maternal Grandmother Family History of C VA or Stroke: Father Family History of Hy pertension: INSURANCE PROVIDERS Payer name Policy type / Coverage type Isabella red alliance party ID [facility] Other [id number] ADVANCE DIRECTIVES Name Date DISCUSSED - NO DECISION MADE TREATMENT PLAN Date Name Performer [id number],Jose Pierre MD [id number],Jose Francis MD [id number],Jose Pierre MD [id number],S, Jose tiwari MD [id number],B, Jose tiwari MD [id number],B, Jose tiwari MD Cardiology Jose Brice MD Cardiology Jose Brice MD Cardiology Jose Brice MD Cardiology Jose Brice MD Cardiology Jose Brice MD Cardiology Jose Brice MD Cardiology Follow up Jose lopez MD Cardiology Follow up Jose lopez MD Cardiology Follow up Jose lopez MD Cardiology Follow up Jose lopez MD Cardiology Follow up Jose lopez MD Cardiology Follow up Jose lopez MD Cardiology follow up Jose lopez MD Cardiology follow up Jose lopez MD Cardiology follow up Jose lopez MD Cardiology follow up Jose lopez MD Cardiology follow up Jose lopez MD Cardiology follow up Jose lopez MD Cardiology Alyssa Bowen MD Cardiology Alyssa Bowen MD Cardiology Alyssa Bowen MD Cardiology follow up Jose lopez MD Cardiology follow up Jose lopez MD Cardiology follow up Jose lopez MD Cardiology follow up Jose lopez MD Cardiology follow up Jose lopez MD Cardiology follow up Jose lopez MD Cardiology New Patient:Needs thomas e sleep study Jose Brice MD Cardiology New Patient Jose serrano MD Cardiology New Patient Jose serrano MD Cardiology New Patient Jose serrano MD Cardiology New Patient Jose serrano MD Cardiology New Patie nt:Needs stress test. C ut back on alcohol and caffeine. Jose Brice MD Date Name Complete Echo Sleep Study Home Stress Regadenoson Sleep Study Home STR - Nuclear Complete Echo HISTORY OF PROCEDURES Procedure Date Procedure Name Provider Procedure Notes S tatus EKG Jose Brice MD complete d Cardiolite, 2 units Jose Brice MD completed SPECT Images Jose Brice MD comple villa Stress EKG Jose Brice MD complete d EKG Alyssa Bowen MD completed Cardiolite, 2 units Jose Brice MD completed SPECT Images Juan Lion MD compl eted Stress EKG Ketan Zapien MD completed EKG Jose Brice MD complete d MASHA Holylup Jose Brice MD c ompleted
--- OUTSIDE RECORDS SUMMARY | 2024-07-14 08:18 | XMS_ITS | Continuity of Care Document ---
Author Organization [facility] Address [address] [place] [address] [place] [address] Phone Care Team Providers Care Lpn Per Diem Name Role Phone Devon Wilkins MD Unavailable Unavailable Allergies, Adverse Reactions, Alerts Substance Reaction Status Criticality No Known Allergies Active No Inform ation Medications Medication Instructions Dosage Effective Dates (start - stop) Status Comments Lyrica 75 mg capsule take 1 capsule by oral route 2 times every day 75 MG - Active avoid driving or operate machines hydrocodone 7.5 mg-acetaminophen 325 mg tablet take 1 tablet by oral route 2 times every day as needed for pain as needed 1 tablet - Active PRN for pain, avoid driving or operate machines Crestor 20 mg tablet take 1 tablet by oral route every day 20 MG - Active irbesartan 150 mg tablet take 1 tablet by oral route every day 150 MG - Active omeprazole 20 mg capsule,delayed release take 1 capsule by oral route every day before a meal 20 MG - Active Procedures Procedure Date OFFICE/OUTPATIENT VISIT, EST PREV VISIT, EST, AGE 40-64 OFFICE/OUTPATIENT VISIT, EST OFFICE/OUTPATIENT VISIT, EST OFFICE/OUTPATIENT VISIT, EST PREV VISIT, EST, AGE 40-64 OFFICE/OUTPATIENT VISIT, EST OFFICE/OUTPATIENT VISIT, EST PREV VISIT, EST, AGE 40-64 OFFICE/OUTPATIENT VISIT, EST OFFICE/OUTPATIENT VISIT, EST OFFICE/OUTPATIENT VISIT, EST OFFICE/OUTPATIENT VISIT, EST PREV VISIT, EST, AGE 40-64 OFFICE/OUTPATIENT VISIT, EST OFFICE/OUTPATIENT VISIT, EST OFFICE/OUTPATIENT VISIT, EST OFFICE/OUTPATIENT VISIT, EST OFFICE/OUTPATIENT VISIT, EST OFFICE/OUTPATIENT VISIT, EST OFFICE/OUTPATIENT VISIT, EST PREV VISIT, EST, AGE 40-64 OFFICE/OUTPATIENT VISIT, EST OFFICE/OUTPATIENT VISIT, EST OFFICE/OUTPATIENT VISIT, EST OFFICE/OUTPATIENT VISIT, EST OFFICE/OUTPATIENT VISIT, EST PREV VISIT, EST, AGE 40-64 OFFICE/OUTPATIENT VISIT, EST OFFICE/OUTPATIENT VISIT, EST OFFICE/OUTPATIENT VISIT, EST OFFICE/OUTPATIENT VISIT, EST OFFICE/OUTPATIENT VISIT, EST PREV VISIT, EST, AGE 40-64 OFFICE/OUTPATIENT VISIT, EST OFFICE/OUTPATIENT VISIT, EST OFFICE/OUTPATIENT VISIT, EST PREV VISIT, EST, AGE 40-64 OFFICE/OUTPATIENT VISIT, EST OFFICE/OUTPATIENT VISIT, EST PREV VISIT, EST, AGE 40-64 OFFICE/OUTPATIENT VISIT, EST PREV VISIT, EST, AGE 40-64 OFFICE/OUTPATIENT VISIT, EST PREV VISIT, EST, AGE 40-64 OFFICE/OUTPATIENT VISIT, EST OFFICE/OUTPATIENT VISIT, EST Advance Directives Directive Yes / No Effective Date File Name No Information Encounters Encounter Description Practice Location Reason(s) For Visit Diagnoses Date Provider Providers Copied on Encounter OFFICE/OUTPA TIENT VISIT, EST [facility], [address] [place], [place] [address], [address], tel:[phone] [facility] Medicine back pain1 (chief complaint) HTN (chief complaint) Other spondylosis, lumbar regionEssential (primary) hypertension 5 Franky Osorio. [address], [place], [place], [address] , [place]. tel:[phone] PREV VISIT, EST, AGE 40-64 [facility], [address], [place], [place], [address], [place] tel:[phone] [facility] Medicine physical (chief complaint) Encounter for general adult medical exam w abnormal findingsEssential (primary) hypertensionMixed hyperlipidemiaLumba go with sciatica, left sideBarrett's esophagus without dysplasiaPolyp of colon 5 Franky Brown [address], [place], [place], [address] , [place]. tel:[phone] OFFICE/OUTPA TIENT VISIT, EST [facility], [address] [place] [address], [place] tel:[phone] [facility] Medicine finger1 (chief complaint) HTN (chief complaint) pain (chief complaint) alcohol1 (chief complaint) Cellulitis of left upper limbEssential (primary) hypertensionChronic pain syndromeAlcohol abuse, uncomplicated 4 Franky Brown [address], [place], [place], [address] , [place]. tel:[phone] OFFICE/OUTPA TIENT VISIT, EST [facility], [address] [place] [place], [address], [place] tel:[phone] [facility] HTN (chief complaint) pain1 (chief complaint) Chronic pain syndromeEssential (primary) hypertension 4 Franky Osorio. [address], [place], [place], [address] , [place]. tel:[phone] PREV VISIT, EST, AGE 40-64 [facility], [address], [place], [place], [address], [place] tel:[phone] [facility] Medicine physical (chief complaint) Encounter for general adult medical exam w abnormal findingsEssential (primary) hypertensionChronic pain syndromeBarrett's esophagus without dysplasiaMixed hyperlipidemiaBleed ing from noseCellulitis of left armCholesterolosis of gallbladder 4 Franky Osorio. [address], [place], [place], [address] , [place]. [phone] [facility], [address], [place], [place], [address], [place] [phone] [facility] No Information 3 Franky Osorio. [address], [place], [place], [address] , [place]. tel:[phone] OFFICE/OUTPA TIENT VISIT, EST [facility], [address], [place], [place], [address], [place] tel:[phone] [facility] HTN (chief complaint) HLP (chief complaint) barrett1 (chief complaint) knee pain1 (chief complaint) Rodríguez's esophagus without dysplasiaChronic pain syndromeMixed hyperlipidemiaEssen tial (primary) hypertensionAlcohol dependence, in remission 3 Franky Osorio. [address], [place], [place], [address] , [place]. tel:[phone] PREV VISIT, EST, AGE 40-64 [facility], [address], [place], [place], [address], [place] tel:[phone] [facility] physical (chief complaint) Encounter for general adult medical exam w abnormal findingsEssential (primary) hypertensionBarrett 's esophagus without dysplasiaMixed hyperlipidemiaChole sterolosis of gallbladderChronic pain syndrome 3 Franky Osorio. [address], [place], [place], [address] , [place]. tel:[phone] OFFICE/OUTPA TIENT VISIT, EST [facility], [address], [place], [place], [address], [place] tel:[phone] [facility] pain1 (chief complaint) sick (chief complaint) Viral infectionChronic pain syndrome 3 Franky Osorio. [address], [place], [place], [address] , [place]. tel:[phone] OFFICE/OUTPA TIENT VISIT, EST [facility], [address], [place], [place], [address], [place] tel:[phone] [facility] HLP (chief complaint) pain (chief complaint) Barrett1 (chief complaint) Chronic pain syndromeMixed hyperlipidemiaBarre tt's esophagus without dysplasia 2 Franky Osorio. [address], [place], [place], [address] , [place]. tel:[phone] OFFICE/OUTPA TIENT VISIT, EST [facility], [address], [place], [place], [address], [place] tel:[phone] [facility] HLP (chief complaint) axillar1 (chief complaint) gallbladde r polyp1 (chief complaint) HTN (chief complaint) pain1 (chief complaint) Cholesterolosis of gallbladderLymphade nopathyEssential (primary) hypertensionChronic pain syndromeMixed hyperlipidemia 2 Franky Osorio. [address], [place], [place], [address] , [place]. [phone] PREV VISIT, EST, AGE 40-64 [facility], [address], [place], [place], [address], [place] tel:[phone] [facility] physical (chief complaint) Encounter for general adult medical exam w abnormal findingsChronic pain syndromeHyperlipide miaPolyp of colonEssential (primary) hypertensionBarrett 's esophagus without dysplasiaCholestero losis of gallbladderLymphade nopathy 2 Franky Osorio. [address], [place], [place], [address] , [place]. tel:[phone] OFFICE/OUTPA TIENT VISIT, EST [facility], [address], [place], [place], [address], [place] tel:[phone] [facility] sick (chief complaint) pain (chief complaint) HLP (chief complaint) Viral infectionChronic pain syndromeHyperlipide cesar 2 Franky Osorio. [address], [place], [place], [address] , [place]. tel:[phone] OFFICE/OUTPA TIENT VISIT, [facility], [address], [place], [place], [address], [place] tel:[phone] [facility] HTN (chief complaint) Barrett1 (chief complaint) polyp1 (chief complaint) pain (chief complaint) HLP (chief complaint) Rodríguez's esophagus without dysplasiaCholestero losis of gallbladderEssentia l (primary) hypertensionChronic pain syndromeHyperlipide miaPolyp of colon 1 Franky Brown [address], [place], [place], [address] , [place]. [phone] OFFICE/OUTPA TIENT VISIT, [facility], [address], [place], [place], [address], [place] tel:[phone] [facility] pain (chief complaint) barrett1 (chief complaint) palpitatio n1 (chief complaint) PalpitationsBarrett 's esophagus without dysplasiaChronic pain syndrome 1 Franky Brown [address], [place], [place], [address] , [place]. tel:[phone] OFFICE/OUTPA TIENT VISIT, [facility], [address], [place], [place], [address], [place] tel:[phone] [facility] polyp1 (chief complaint) Cholesterolosis of gallbladder 1 Franky Osorio. [address], [place], [place], [address] , [place]. tel:[phone] OFFICE/OUTPA TIENT VISIT, [facility], [address], [place], [place], [address], [place] tel:[phone] [facility] barrett1 (chief complaint) gallbladde r polyp (chief complaint) pain (chief complaint) Rodríguez's esophagus without dysplasiaChronic pain syndromeCholesterol osis of gallbladder May-0 6 1 Franky Brown [address], [place], [place], [address] , [place]. tel:[phone] OFFICE/OUTPA TIENT VISIT, EST [facility], [address], [place], [place], [address], [place] tel:[phone] [facility] alcohol1 (chief complaint) Alcohol dependence in remissionGeneralize d Anxiety Disorder Apr-0 8 1 Franky Osorio. [address], [place], [place], [address] , [place]. tel:[phone] PREV VISIT, EST, AGE 40-64 [facility], [address], [place], [place], [address], [place] tel:[phone] [facility] physical (chief complaint) Encounter for general adult medical exam w abnormal findingsHyperlipide miaBarrett's esophagus without dysplasiaPolyp of colonEssential (primary) hypertensionGeneral ized Anxiety DisorderChronic pain syndrome Mar-0 1 Franky Osorio. [address], [place], [place], [address] , [place]. [phone] OFFICE/OUTPA TIENT VISIT, EST [facility], [address], [place], [place], [address], [place] tel:[phone] [facility] HLP (chief complaint) glucose1 (chief complaint) gallbladde r polyp1 (chief complaint) pain (chief complaint) Cholesterolosis of gallbladderHyperlip idemiaHyperglycemia Chronic pain syndrome Nov-3 0- 0 Franky Osorio. [address], [place], [place], [address] , [place]. tel:[phone] Referring Provider: Devon Wilkins [address], [place], [place], [address]. tel:[phone] OFFICE/OUTPA TIENT VISIT, EST [facility], [address], [place], [place], [address], [place] tel:[phone] [facility] sore throat1 (chief complaint) pain1 (chief complaint) gallbladde r polyp1 (chief complaint) HLP (chief complaint) Cholesterolosis of gallbladderAcute pharyngitisHyperlip idemiaChronic pain syndromeGERD w/o esophagitis 0 Franky Osorio. [address], [place], [place], [address] , [place]. tel:[phone] Referring Provider: An[address], [place], [place], [address]. tel:[phone] OFFICE/OUTPA TIENT VISIT, EST [facility], [address], [place], [place], [address], [place] tel:[phone] [facility] GERD1 (chief complaint) HTN (chief complaint) back 1 (chief complaint) panic attacks1 (chief complaint) hyperglyce mia1 (chief complaint) Chronic pain syndromeEssential (primary) hypertensionGERD w/o esophagitisCholeste rolosis of gallbladderPanic attackHyperglycemia 0 Franky Osorio. [address], [place], [place], [address] , [place]. [phone] Referring Provider: [address], [place], [place], [address]. tel:[phone] OFFICE/OUTPA TIENT VISIT, EST [facility], [address], [place], [place], [address], [place] tel:[phone] [facility] abd pain1 (chief complaint) pain (chief complaint) GERD w/o esophagitisChronic pain syndromeCholesterol osis of gallbladder Jul- 0 Franky Osorio. [address], [place], [place], [address] , [place]. [phone] Referring Provider: Anali Ull[address], [place], [place], [address]. tel:[phone] PREV VISIT, EST, AGE 40-64 [facility], [address], [place], [place], [address], [place] tel:[phone] [facility] physical (chief complaint) PHysical (chief complaint) Encounter for general adult medical exam w abnormal findingsEssential (primary) hypertensionCholest erolosis of gallbladderChronic pain syndromeHyperlipide miaHyperglycemia 0 Franky Osorio. [address], [place], [place], [address] , [place]. tel:[phone] Referring Provider: Anali Ulloa [address], [place], [place], [address]. tel:[phone] OFFICE/OUTPA TIENT VISIT, [facility], [address], [place], [place], [address], [place] tel:[phone] [facility] chronic pain (chief complaint) HLP (chief complaint) HTN (chief complaint) tobacco1 (chief complaint) Body mass index (BMI) 27.0-27.9, adultHyperlipidemia Essential (primary) hypertensionChronic pain syndromeTobacco use 9 Franky Osorio. [address], [place], [place], [address] , [place]. tel:[phone] Referring Provider: [address], [place], [place], [address]. tel:[phone] OFFICE/OUTPA TIENT VISIT, [facility], [address], [place], [place], [address], [place] tel:[phone] [facility] HLP (chief complaint) anxiety1 (chief complaint) pain (chief complaint) HTN (chief complaint) HyperlipidemiaGener alized Anxiety DisorderChronic pain syndromeEssential (primary) hypertension 9 Franky Osorio. [address], [place], [place], [address] , [place]. tel:[phone] Referring Provider: [address], [place], [place], [address]. tel:[phone] OFFICE/OUTPA TIENT VISIT, [facility], [address], [place], [place], [address], [place] tel:[phone] [facility] HLP (chief complaint) chronic pain1 (chief complaint) HTN (chief complaint) anxiety1 (chief complaint) HyperlipidemiaEssen tial (primary) hypertensionGeneral ized Anxiety DisorderChronic pain syndrome 9 Franky Osorio. [address], [place], [place], [address] , [place]. tel:[phone] Referring Provider: Devon Wilkins, [address], [place], [place], [address]. tel:[phone] OFFICE/OUTPA TIENT VISIT, [facility], [address], [place], [place], [address], [place] tel:[phone] [facility] back pain1 (chief complaint) HTN (chief complaint) anxiety1 (chief complaint) Essential (primary) hypertensionGeneral ized Anxiety DisorderLumbago with sciatica, left side 9 Franky Osorio. [address], [place], [place], [address] , [place]. tel:[phone] Referring Provider: Anali Ulloa [address], [place], [place], [address]. tel:[phone] PREV VISIT, EST, AGE 40-64 [facility], [address], [place], [place], [address], [place] tel:[phone] [facility] Physical (chief complaint) Encntr for general adult medical exam w/o abnormal findings 9 Franky Osorio. [address], [place], [place], [address] , [place]. [phone] Referring Provider: Anali Ulloa [address], [place], [place], [address]. tel:[phone] OFFICE/OUTPA TIENT VISIT, EST [facility], [address], [place], [place], [address], [place] tel:[phone] [facility] HLP (chief complaint) glucose1 (chief complaint) chronic pain1 (chief complaint) HTN (chief complaint) HyperlipidemiaEssen tial (primary) hypertensionHypergl ycemiaChronic pain syndrome 8 Franky Osorio. [address], [place], [place], [address] , [place]. tel:[phone] Referring Provider: Anali Ulloa [address], [place], [place], [address]. tel:[phone] OFFICE/OUTPA TIENT VISIT, EST [facility], [address], [place], [place], [address], [place] tel:[phone] [facility] chest pain1 (chief complaint) HLP (chief complaint) HTN (chief complaint) fatigue1 (chief complaint) anxiety1 (chief complaint) HyperlipidemiaEssen tial (primary) hypertensionChronic pain syndromeGeneralized Anxiety DisorderSleep apneaChest pain 8 Franky Osorio. [address], [place], [place], [address] , [place]. tel:[phone] Referring Provider: [address], [place], [place], [address]. tel:[phone] OFFICE/OUTPA TIENT VISIT, [facility], [address], [place], [place], [address], [place] tel:[phone] [facility] chest pain1 (chief complaint) HLP (chief complaint) chronic pain1 (chief complaint) HTN (chief complaint) Chest painHyperlipidemiaE ssential (primary) hypertensionGeneral ized Anxiety DisorderChronic pain syndrome 8 Franky Osorio. [address], [place], [place], [address] , [place]. tel:[phone] Referring Provider: [address], [place], [place], [address]. tel:[phone] PREV VISIT, EST, AGE 40-64 [facility], [address], [place], [place], [address], [place] tel:[phone] [facility] PHysical (chief complaint) Encntr for general adult medical exam w/o abnormal findings 8 Franky Osorio. [address], [place], [place], [address] , [place]. tel:[phone] Referring Provider: [address], [place], [place], [address]. tel:[phone] OFFICE/OUTPA TIENT VISIT, EST [facility], [address], [place], [place], [address], [place] tel:[phone] [facility] HTN (chief complaint) HLP (chief complaint) knee pani1 (chief complaint) tobacco (chief complaint) Essential (primary) hypertensionHyperli pidemiaPain in right kneeTobacco use 7 Franky Brown [address], [place], [place], [address] , [place]. [phone] Referring Provider: [address], [place], [place], [address]. tel:[phone] OFFICE/OUTPA TIENT VISIT, EST [facility], [address], [place], [place], [address], [place] tel:[phone] [facility] glucose1 (chief complaint) HLP (chief complaint) HTN (chief complaint) knee pain1 (chief complaint) Essential (primary) hypertensionHyperli pidemiaHyperglycemi aSleep apnea Dec-0 7 Franky Br[address], [place], [place], [address] , [place]. [phone] Referring Provider: [address], [place], [place], [address]. tel:[phone] PREV VISIT, EST, AGE 40-64 [facility], [address], [place], [place], [address], [place] tel:[phone] [facility] PHysical (chief complaint) Encounter for general adult medical exam w abnormal findingsEssential (primary) hypertensionHyperli pidemiaPain in right knee 7 Wilkins Devon. [address], [place], [place], [address] , [place]. tel:[phone] Referring Provider: Anali Ulloa [address], [place], [place], [address]. tel:[phone] PREV VISIT, EST, AGE 40-64 [facility], [address], [place], [place], [address], [place] tel:[phone] [facility] PHysical (chief complaint) Routine medical examBlood pressure elevatedSleep apneaOtalgiaDietary surveillance and counseling 5 Franky Osorio. [address], [place], [place], [address] , [place]. tel:[phone] Referring Provider: Anali Ulloa [address], [place], [place], [address]. tel:[phone] PREV VISIT, EST, AGE 40-64 [facility], [address], [place], [place], [address], [place] tel:[phone] [facility] phsycial (chief complaint) Routine Medical ExamDietary surveillance and counselingRoutine Medical Exam 3 Franky Osorio. [address], [place], [place], [address] , [place]. tel:[phone] Referring Provider: Anali Ulloa [address], [place], [place], [address]. tel:[phone] OFFICE/OUTPA TIENT VISIT, EST [facility], [address], [place], [place], [address], [place] tel:[phone] [facility] headache (chief complaint) Dietary surveillance and counselingHeadacheC ervicalgia 3 Franky Osorio. [address], [place], [place], [address] , [place]. tel:[phone] Referring Provider: Anali Ulloa [address], [place], [place], [address]. tel:[phone] OFFICE/OUTPA TIENT VISIT, EST [facility], [address], [place], [place], [address], [place] tel:[phone] [facility] back pain (chief complaint) hLP (chief complaint) Other and unspecified hyperlipidemiaLumba goDietary surveillance and counseling 2 Franky Osorio. [address], [place], [place], [address] , [place]. tel:[phone] Referring Provider: Devno Wilkins, [address], [place], [place], [address]. tel:[phone] Family History Family Member Type Diagnosis Age At Onset Mother Problem (finding) Cancer, breast Father Problem (finding) liver cirrhosis Sister Problem (finding) Cancer - stomach Payers Payer name Insurance type Covered democrat ID Authoriza tikelechi(s) [facility] [id number] Social History Type Description Quantity Date Captured Comments Alcohol Use Details beer Caffeine Use Details Unknown Tobacco Use Status Heavy cigarette smok er (20-39 cigs/day) Smoking Status Heavy tobacco smoker Sex Male Vital Signs Date / Time: Height Weight BMI Pulse Rate Blood Pressure Temperature Respiratory Rate Body Surface Area Head Circumference BMI percentile Pulse Ox Inhaled Ox 4:34 PM 66.00 in 201.20 lbs 32.4 7 kg/m eter (2) 86 /min 150/82 mm[Hg] 98.3 F 16 /min Chief Complaint And Reason For Visit From encounter dated '06/05/2024 16:18'. back pain1 (chief complaint). Description: Pt has chronic low back pain Pt c/o sciatica and leg neuropathy .Pt denies any loss of bowel or bladder control or saddle area paresthesia Pt had x ray donewhich showed pars defect and advanced DDD. MRI of L spine was denied by insurance HTN (chief complaint). Description: Pt has mild HTN. Pt takes irbesartan and his bp is borderline high Pt states that he is in pain today Pt denies any chest pain or headache Plan Of Treatment Date Type Action Status Goal Tobacco cessation counseling completed Goal Special diet education compl eted Goal Tobacco cessation counseling completed Goal Special diet education compl eted Goal Tobacco cessation counseling completed Goal Special diet education compl eted Goal Special diet education compl eted Goal Tobacco cessation counseling completed Goal Special diet education compl eted Goal Tobacco cessation counseling completed Goal Tobacco cessation counseling completed Goal Special diet education compl eted Goal Special diet education compl eted Goal Special diet education compl eted Goal Tobacco cessation counseling completed Goal Tobacco cessation counseling completed Referral Ordered: Physical Therapy (related to Lumbago with sciatica, left side) ordered Referral Referred To: Physical Therapy Ordered: Referrals: Physical Therapy. Evaluate and treat ordered Referral Ordered: MRI LUMBAR SPINE W/O DYE ordered Referral Ordered: Otolaryngology (related to Bleeding from nose) ordered Referral Ordered: US EXAM OF ABDOMEN, LIMITED, GALLBLADDER ordered Referral Ordered: OPERATIVE UPPER GI ENDOSCOPY ordered Referral Ordered: NUC MED HIDA (HEPATOBILIARY) SCAN ordered Referral Ordered: [facility] -[facility] Phys[facility] : Internal Medicine : Cardiovascular Disease (related to Chest pain) ordered Referral Referred To: Martin Diane [address] [place], [place] [id number] Ordered: Referrals: Allopathic & Osteopathic Physicians : Internal Medicine : Cardiovascular Disease. Martin Diane. Evaluate and treat ordered Referral Ordered: Orthopedic Surgery (related to Pain in right knee) ordered Referral Ordered: Otolaryngology (related to Essential (primary) hypertension) ordered Referral Ordered: KNEE XRAY TWO-VIEW Right ordered Referral Ordered: Referrals: Otolaryngology. Evaluate and treat ordered Referral Ordered: Referrals: Orthopedic Surgery. Evaluate and treat ordered Referral Ordered: Pulmonology (related to Sleep apnea) ordered Referral Ordered: Referrals: Pulmonology ordered Referral Ordered: Physical Therapy (related to Lumbago) ordered Referral Ordered: LUMBAR SPINE XRAY W/ OBLIQUES ordered Referral Referred To: Physical Therapy Ordered: Referral: Physical Therapy. Evaluate and treat. ordered History Of Present Illness Encounter Date Complaint History Of Prese nt Illness back pain1 Pt has chronic l ow back pain Pt c/o sciatica and leg neuropathy .Pt denies any loss of bowel or bladder control or saddle area paresthesia Pt had x ray done which showed pars defect and advanced DDD. MRI of L spine was denied by insurance HTN Pt has mild HTN. Pt takes irbesartan and his bp is borderline high Pt states that he is in pain today Pt denies any chest pain or headache physical Pt needs annual physical Pt has HTN Pt takes irbesartan and his bp is ok. Pt has HLP. Pt takes crestor Pt denies any myalgia Pt has rodríguez s/p esophageal ablation. Pt had EGD last month which showed rodríguez and he was told to continue omeprazole. Pt also has tubular adenoma and he had colonoscopy last month which showed tubular adenoma. Pt denies any lower GI issue. Pt has chronic low back pain which is getting worse lately Pt c/o bilateral sciatica and left leg numbness and tingling and also some right hip area Pt denies any loss of bowel or bladder control or saddle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
[2024-07-14 08:19] VITALS: BP 163/104; PULSE 78
[2024-07-14 08:20] VITALS: BP 154/106; PULSE 87
[2024-07-14 08:24] VITALS: RESP 16
[2024-07-14 08:40] LABS: Hematocrit 44.1 % (42.0-52.0); Hemoglobin 14.7 g/dL (14.0-18.0); Mean Corpuscular HGB Conc 33.3 g/dl (32-36); Mean Corpuscular Hemoglobin 32.6 pg (26-34); Mean Corpuscular Volume 97.8 fl (80-100); Mean Platelet Volume 9.6 fl (7.4-10.4); Platelet Count Result 195 k/mm3 (150-375); Red Blood Count 4.51 M/mm3 (4.6-6.20); Red Cell Distribution Width 13.8 % (11.5-14.5); White Blood Count 5.1 K/mm3 (4.5-10.0)
[2024-07-14 08:47] LABS: Add Urine Microscopic? YES; Appearance Urine Clear (Clear); Bilirubin Urine Negative (Negative); Blood Urine 1+ (Negative); Color Urine Yellow (Yellow); Glucose Urine UA Negative (Negative); Ketones Urine Negative (Negative); Leukocyte Esterase Ur Negative LEU/UL (Negative); Nitrate Urine Negative (Negative); Protein Urine Negative (Negative); Specific Grav Ur 1.008 (1.001-1.035); Urobilinogen Urine 0.2 mg/dL (<2.0); pH Urine 6.5 (5.0-9.0)
[2024-07-14 08:50] LABS: Alanine Aminotransferase 57 U/L (6-50); Albumin Level 4.8 g/dL (3.5-5.1); Alkaline Phosphatase 81 U/L (38-126); Anion Gap 12 mmol/L (4-12); Aspartate Amino Transferase 59 U/L (17-59); Bilirubin,Total 0.7 mg/dL (0.2-1.3); Blood Urea Nitrogen 15 mg/dL (9-20); Calcium 8.9 mg/dL (8.4-10.2); Carbon Dioxide 22 mmol/L (22-30); Chloride 95 mmol/L (98-107); Estimated CRCL calculation 78 ml/min; Estimated Glomerular Filt Rate > 60; Glucose 113 mg/dL (65-110); Lipase 117 U/L (23-300); Sodium 129 mmol/L (137-145)
[2024-07-14 08:56] LABS: Bacteria Urine Rare /hpf; RBC Urine 0-2 /hpf (0-2); WBC Urine 0-3 /hpf (0-3)
[2024-07-14 09:11] LABS: Band Neutrophils Percent 0 % (0-6); Lymphocytes Absolute Manual 1.27 K/mm3 (1.1-4.5); Lymphocytes Percent Manual 25 % (18-44); Monocytes Absolute Manual 0.71 K/mm3 (0.1-0.90); Monocytes Percent Manual 14 % (3-9); Neutrophils Absolute Manual 3.11 K/mm3 (1.3-6.7); Neutrophils Percent Manual 61 % (46-73); Total Cells Counted 100
[2024-07-14 09:12] LABS: Anisocytosis 1+; Platelet Estimate Adequate (Adequate); Schistocytes None Seen; Smudge Cells FEW
[2024-07-14] MEDS: SODIUM CHLORIDE 0.9% IV 1,000 ML 999 ML IV CONT (09:16)
--- OUTSIDE RECORDS SUMMARY | 2024-07-14 10:27 | XMS_ITS | CONTINUITY OF CARE DOCUMENT ---
Author Name sukhjinder slaughter Address Unknown Organization [facility] Address [address] 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 Jonas Brice MD Family History of CVA or Stroke: active ? Dom Brice MD Family History of CVA or Stroke: active ? Dom Brice MD Palpitations active Jose Brice MD Chest pain-type to be determined active Dom Brice MD Tobacco abuse active Jose Brice MD Dizziness active Jose Brice MD Anxiety active Jose Brice MD Hyperlipidemia active ? Jose Brice MD Hypertension active ? Jose Brice MD Panic attack active Jose Brice MD Snoring active Jose Brice MD ENCOUNTERS Date Type Provider Location Encounter Diag nosis 05/20 - 05/22 In-person encounter Office Visit Jose Brice MD [place] [facility] 06/25 - 07/01 In-person encounter Office Visit Jose Brice MD [place] [facility] 07/24 - 07/24 In-person encounter Office Visit Jose Brice MD [place] [facility] 06/20 - 06/20 In-person encounter Office Visit Alyssa Bowen MD [place] [facility] 12/14 - 12/14 In-person encounter Office Visit Jose Brice MD [place] [facility] 11/16 - 11/16 In-person encounter Office Visit Jose Brice MD [place] [facility] Family History of Hypertension:Family Hi story of CVA or Stroke:Family History of CVA or Stroke:PalpitationsChest pain-type to be determinedTobacco abuseDizzinessAnxietyHyperlipidemiaHypertensionPanic attackSnoring VITAL SIGNS Date Observation Value Provider Body Mass Index (Ratio) 27.44 kg/m2 Jonas Brice MD blood pressure, diastolic 80 mm[Hg] Nellie nkLog blood pressure, systolic 130 mm[Hg] [facility] blood pressure, cuff size large Tr tommy Myrick blood pressure, diastolic 80 mm[Hg] Tr tommy Myrick blood pressure, systolic 130 mm[Hg] Try kingsley Myrick respiratory rate E&M 20 /min [place] Myrick oxygen saturation, oximetry 98 % [place] [...] lder height E&M 66 [in_i] Millie Brennan [facility] Body Mass Index (Ratio) 26.79 kg/m2 Jonas [...] Alyssia Robert height E&M 66 [in_i] Alyssia Oxford Body Mass Index (Ratio) 27.44 kg/m2 Jonas Brice MD blood pressure, diastolic 82 mm[Hg] Da digna Robert blood pressure, systolic 152 mm[Hg] Dac ia Robert oxygen saturation, oximetry 98 % Alyssia Robert respiratory rate E&M 16 /min Alyssia V oss pulse rate 78 /min Alsysia Robert weight E&M 170 [lb_av] Alyssia Oxford height E&M 66 [in_i] Alyssia Oxford ALLERGIES No Known Drug Allergies HISTORY OF MEDICATION USE Medication Status Instructions Dates Provider Indications Com ments VICODIN ES 7.5-300 MG ORAL TABLET active Take 1 as needed 4 Alyssia Robert BUSPIRONE HCL 7.5 MG ORAL TABLET completed take one twice daily 4 - 5 Tonsha Morse amlodipine 10 mg tablet active Take once a day 4 [facility] SIMVASTATIN 20 MG ORAL TABLET completed take one tablet daily - 5 Tonsha Morse SOCIAL HISTORY Date Observation Value Provider social history E&M Marital Statu s: C hildren: 0 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 P atient has been counseled to quit. 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 Smoking History: P atient currently smokes every [...] Payer name Policy type / Coverage type [place] red green party ID [id number] Other [id number] ADVANCE DIRECTIVES Name Date DISCUSSED - NO DECISION MADE TREATMENT PLAN Date Name Performer [id number],Jose Pierre MD [id number],Jose Francis MD [id number],Jose Pierre MD [id number],S, Jose tiwari MD [id number],B, Jose tiwari MD [id number],B, Jose tiwari MD Cardiology Jose Brice MD [...] Jose lopez MD Cardiology follow up Jose loepz MD Cardiology follow up Jose lopez MD [...] EKG Jose Brice MD complete d MASHA [place] Jose Brice MD c ompleted
--- OUTSIDE RECORDS SUMMARY | 2024-07-14 10:27 | XMS_ITS | Continuity of Care Document ---
Author Organization [facility] Address [address] [place] [address] [place] [address] Phone Care Team Providers Care Brand Marketing Manager Name Role Phone Devon Wilkins MD Unavailable Unavailable Allergies, Adverse Reactions, Alerts Substance Reaction Status Criticality No Known Allergies Active No Inform ation Medications Medication Instructions Dosage Effective Dates (start - stop) Status Comments Lyrica 75 mg capsule take 1 capsule by oral route 2 times every day 75 MG - Active avoid driving or operate machines Crestor 20 mg tablet take 1 tablet by oral route every day 20 MG - Active hydrocodone 7.5 mg-acetaminophen 325 mg tablet take 1 tablet by oral route 2 times every day as needed for pain as needed 1 tablet - Active PRN for pain, avoid driving or operate machines irbesartan 150 mg tablet take 1 tablet [...] Copied on Encounter OFFICE/OUTPA TIENT VISIT, EST [facility], [address] [place], [place] [address]har[place], [place], [address], tel:[phone] [facility] Medicine back pain1 (chief complaint) HTN (chief complaint) Other spondylosis, lumbar regionEssential (primary) hypertension 5 Franky Osorio. [address], [place], [place], [address] , [place]. tel:[phone] PREV VISIT, EST, AGE 40-64 [facility], [address], [place], [place], [address], [place] tel:[phone] [facility] Medicine physical (chief complaint) Encounter for general adult medical exam w abnormal findingsEssential (primary) hypertensionMixed hyperlipidemiaLumba go with sciatica, left sideBarrett's esophagus without dysplasiaPolyp of colon 5 Franky Brown [address], [place], [place], [address] , [place]. tel:[phone] OFFICE/OUTPA TIENT VISIT, EST [facility], [address] [place], [address], [place] tel:[phone] [facility] Medicine finger1 (chief complaint) HTN (chief complaint) pain (chief complaint) alcohol1 (chief complaint) Cellulitis of left upper limbEssential (primary) hypertensionChronic pain syndromeAlcohol abuse, uncomplicated 4 Franky Brown [address], [place], [place], [address] , [place]. tel:[phone] OFFICE/OUTPA TIENT VISIT, EST [facility], [address] [place], [address], [place] tel:[phone] [facility] HTN (chief complaint) pain1 (chief complaint) Chronic pain syndromeEssential (primary) hypertension 4 Franky Osorio. [address], [place], [place], [address] , [place]. tel:[phone] PREV VISIT, EST, AGE 40-64 [facility], [address], [place], [place], [address], [place] tel:[phone] [facility] Medicine physical (chief complaint) Encounter for general adult medical exam w abnormal findingsEssential (primary) hypertensionChronic pain syndromeBarrett's esophagus without dysplasiaMixed hyperlipidemiaBleed ing from noseCellulitis of left armCholesterolosis of gallbladder 4 Franky Osorio. [address], [place], [place], [address] , [place]. [phone] [facility], [address], [place], [place], [address], [place] [phone] [facility] No Information 3 Franky Osorio. [address], [place], [place], [address] , [place]. tel:[phone] OFFICE/OUTPA TIENT VISIT, EST [facility], [address], [place], [place], [address], [place] tel:[phone] [facility] HTN (chief complaint) HLP (chief complaint) barrett1 (chief complaint) knee pain1 (chief complaint) Rodríguez's esophagus without dysplasiaChronic pain syndromeMixed hyperlipidemiaEssen tial (primary) hypertensionAlcohol dependence, in remission 3 Franky Osorio. [address], [place], [place], [address] , [place]. tel:[phone] PREV VISIT, EST, AGE 40-64 [facility], [address], [place], [place], [address], [place] tel:[phone] [facility] physical (chief complaint) Encounter for general adult medical exam w abnormal findingsEssential (primary) hypertensionBarrett 's esophagus without dysplasiaMixed hyperlipidemiaChole sterolosis of gallbladderChronic pain syndrome 3 Franky Osorio. [address], [place], [place], [address] , [place]. tel:[phone] OFFICE/OUTPA TIENT VISIT, EST [facility], [address], [place], [address], [place] tel:[phone] [facility] pain1 (chief complaint) sick (chief complaint) Viral infectionChronic pain syndrome 3 Franky Osorio. [address], [place], [place], [address] , [place]. tel:[phone] OFFICE/OUTPA TIENT VISIT, EST [facility], [address], [place], [place], [address], [place] tel:[phone] [facility] HLP (chief complaint) pain (chief complaint) Barrett1 (chief complaint) Chronic pain syndromeMixed hyperlipidemiaBarre tt's esophagus without dysplasia 2 Franky Osorio. [address], [place], [place], [address] , [place]. tel:[phone] OFFICE/OUTPA TIENT VISIT, EST [facility], [address], [place], [place], [address], [place] tel:[phone] [facility] HLP (chief complaint) axillar1 (chief complaint) gallbladde r polyp1 (chief complaint) HTN (chief complaint) pain1 (chief complaint) Cholesterolosis of gallbladderLymphade nopathyEssential (primary) hypertensionChronic pain syndromeMixed hyperlipidemia 2 Franky Osorio. [address], [place], [place], [address] , [place]. [phone] PREV VISIT, EST, AGE 40-64 [facility], [address], [place], [place], [address], [place] tel:[phone] [facility] physical (chief complaint) Encounter for general adult medical exam w abnormal findingsChronic pain syndromeHyperlipide miaPolyp of colonEssential (primary) hypertensionBarrett 's esophagus without dysplasiaCholestero losis of gallbladderLymphade nopathy 2 Franky Osorio. [address], [place], [place], [address] , [place]. tel:[phone] OFFICE/OUTPA TIENT VISIT, EST [facility], [address], [place], [place], [address], [place] tel:[phone] [facility] sick (chief complaint) pain (chief complaint) HLP (chief complaint) Viral infectionChronic pain syndromeHyperlipide cesar 2 Franky Osorio. [address], [place], [place], [address] , [place]. tel:[phone] OFFICE/OUTPA TIENT VISIT, [facility], [address], [place], [place], [address], [place] tel:[phone] [facility] HTN (chief complaint) Barrett1 (chief complaint) polyp1 (chief complaint) pain (chief complaint) HLP (chief complaint) Rodríguez's esophagus without dysplasiaCholestero losis of gallbladderEssentia l (primary) hypertensionChronic pain syndromeHyperlipide miaPolyp of colon 1 Franky Brown [address], [place], [place], [address] , [place]. [phone] OFFICE/OUTPA TIENT VISIT, [facility], [address], [place], [place], [address], [place] tel:[phone] [facility] pain (chief complaint) barrett1 (chief complaint) palpitatio n1 (chief complaint) PalpitationsBarrett 's esophagus without dysplasiaChronic pain syndrome 1 Franky Brown [address], [place], [place], [address] , [place]. tel:[phone] OFFICE/OUTPA TIENT VISIT, [facility], [address], [place], [place], [address], [place] tel:[phone] [facility] polyp1 (chief complaint) Cholesterolosis of gallbladder 1 Franky Osorio. [address], [place], [place], [address] , [place]. tel:[phone] OFFICE/OUTPA TIENT VISIT, [facility], [address], [place], [place], [address], [place] tel:[phone] [facility] barrett1 (chief complaint) gallbladde r polyp (chief complaint) pain (chief complaint) Rodríguez's esophagus without dysplasiaChronic pain syndromeCholesterol osis of gallbladder May-0 6 1 Franky Brown [address], [place], [place], [address] , [place]. tel:[phone] OFFICE/OUTPA TIENT VISIT, EST [facility], [address], [place], [place], [address], [place] tel:[phone] [facility] alcohol1 (chief complaint) Alcohol dependence in remissionGeneralize d Anxiety Disorder Apr-0 8 1 Franky Osorio. [address], [place], [place], [address] , [place]. tel:[phone] PREV VISIT, EST, AGE 40-64 [facility], [address], [place], [place], [address], [place] tel:[phone] [facility] physical (chief complaint) Encounter for general adult medical exam w abnormal findingsHyperlipide miaBarrett's esophagus without dysplasiaPolyp of colonEssential (primary) hypertensionGeneral ized Anxiety DisorderChronic pain syndrome Mar-0 1 Franky Osorio. [address], [place], [place], [address] , [place]. [phone] OFFICE/OUTPA TIENT VISIT, EST [facility], [address], [place], [place], [address], [place] tel:[phone] [facility] HLP (chief complaint) glucose1 (chief complaint) gallbladde r polyp1 (chief complaint) pain (chief complaint) Cholesterolosis of gallbladderHyperlip idemiaHyperglycemia Chronic pain syndrome Nov-3 0- 0 Franky Osorio. [address], [place], [place], [address] , [place]. tel:[phone] Referring Provider: Devon Wilkins [address], [place], [place], [address]. tel:[phone] OFFICE/OUTPA TIENT VISIT, EST [facility], [address], [place], [place], [address], [place] tel:[phone] [facility] sore throat1 (chief complaint) pain1 (chief complaint) gallbladde r polyp1 (chief complaint) HLP (chief complaint) Cholesterolosis of gallbladderAcute pharyngitisHyperlip idemiaChronic pain syndromeGERD w/o esophagitis 0 Franky Osorio. [address], [place], [place], [address] , [place]. [phone] Referring Provider: [address], [place], [place], [address]. tel:[phone] OFFICE/OUTPA TIENT VISIT, EST [facility], [address], [place], [place], [address], [place] tel:[phone] [facility] GERD1 (chief complaint) HTN (chief complaint) back 1 (chief complaint) panic attacks1 (chief complaint) hyperglyce mia1 (chief complaint) Chronic pain syndromeEssential (primary) hypertensionGERD w/o esophagitisCholeste rolosis of gallbladderPanic attackHyperglycemia 0 Franky Osorio. [address], [place], [place], [address] , [place]. [phone] Referring Provider: [address], [place], [place], [address]. tel:[phone] OFFICE/OUTPA TIENT VISIT, EST [facility], [address], [place], [place], [address], [place] tel:[phone] [facility] abd pain1 (chief complaint) pain (chief complaint) GERD w/o esophagitisChronic pain syndromeCholesterol osis of gallbladder Jul- 0 Franky Osoiro. [address], [place], [place], [address] , [place]. [phone] Referring Provider: [address], [place], [place], [address]. tel:[phone] PREV VISIT, EST, AGE 40-64 [facility], [address], [place], [place], [address], [place] tel:[phone] [facility] physical (chief complaint) PHysical (chief complaint) Encounter for general adult medical exam w abnormal findingsEssential (primary) hypertensionCholest erolosis of gallbladderChronic pain syndromeHyperlipide miaHyperglycemia 0 Franky Osorio. [address], [place], [place], [address] , [place]. tel:[phone] Referring Provider: Anali Ulloa [address], [place], [place], [address]. tel:[phone] OFFICE/OUTPA TIENT VISIT, [facility], [address], [place], [place], [address], [place] tel:[phone] [facility] chronic pain (chief complaint) HLP (chief complaint) HTN (chief complaint) tobacco1 (chief complaint) Body mass index (BMI) 27.0-27.9, adultHyperlipidemia Essential (primary) hypertensionChronic pain syndromeTobacco use 9 Franky Osorio. [address], [place], [place], [address] , [place]. tel:[phone] Referring Provider: [address], [place], [place], [address]. tel:[phone] OFFICE/OUTPA TIENT VISIT, [facility], [address], [place], [place], [address], [place] tel:[phone] [facility] HLP (chief complaint) anxiety1 (chief complaint) pain (chief complaint) HTN (chief complaint) HyperlipidemiaGener alized Anxiety DisorderChronic pain syndromeEssential (primary) hypertension 9 Franky Osorio. [address], [place], [place], [address] , [place]. tel:[phone] Referring Provider: [address], [place], [place], [address]. tel:[phone] OFFICE/OUTPA TIENT VISIT, [facility], [address], [place], [place], [address], [place] tel:[phone] [facility] HLP (chief complaint) chronic pain1 (chief complaint) HTN (chief complaint) anxiety1 (chief complaint) HyperlipidemiaEssen tial (primary) hypertensionGeneral ized Anxiety DisorderChronic pain syndrome 9 Franky Osorio. [address], [place], [place], [address] , [place]. tel:[phone] Referring Provider: Devon Wilkins, [address], [place], [place], [address]. tel:[phone] OFFICE/OUTPA TIENT VISIT, [facility], [address], [place], [place], [address], [place] tel:[phone] [facility] back pain1 (chief complaint) HTN (chief complaint) anxiety1 (chief complaint) Essential (primary) hypertensionGeneral ized Anxiety DisorderLumbago with sciatica, left side 9 Franky Osorio. [address], [place], [place], [address] , [place]. tel:[phone] Referring Provider: Anali Ulloa [address], [place], [place], [address]. tel:[phone] PREV VISIT, EST, AGE 40-64 [facility], [address], [place], [place], [address], [place] tel:[phone] [facility] Physical (chief complaint) Encntr for general adult medical exam w/o abnormal findings 9 Franky Osorio. [address], [place], [place], [address] , [place]. [phone] Referring Provider: Anali Ulloa [address], [place], [place], [address]. tel:[phone] OFFICE/OUTPA TIENT VISIT, EST [facility], [address], [place], [place], [address], [place] tel:[phone] [facility] HLP (chief complaint) glucose1 (chief complaint) chronic pain1 (chief complaint) HTN (chief complaint) HyperlipidemiaEssen tial (primary) hypertensionHypergl ycemiaChronic pain syndrome 8 Franky Osorio. [address], [place], [place], [address] , [place]. tel:[phone] Referring Provider: Anali Ulloa [address], [place], [place], [address]. tel:[phone] OFFICE/OUTPA TIENT VISIT, EST [facility], [address], [place], [place], [address], [place] tel:[phone] [facility] Medicine chest pain1 (chief complaint) HLP (chief complaint) HTN (chief complaint) fatigue1 (chief complaint) anxiety1 (chief complaint) HyperlipidemiaEssen tial (primary) hypertensionChronic pain syndromeGeneralized Anxiety DisorderSleep apneaChest pain 8 Franky Osorio. [address], [place], [place], [address] , [place]. tel:[phone] Referring Provider: [address], [place], [place], [address]. tel:[phone] OFFICE/OUTPA TIENT VISIT, [facility], [address], [place], [place], [address], [place] tel:[phone] [facility] chest pain1 (chief complaint) HLP (chief complaint) chronic pain1 (chief complaint) HTN (chief complaint) Chest painHyperlipidemiaE ssential (primary) hypertensionGeneral ized Anxiety DisorderChronic pain syndrome 8 Franky Osorio. [address], [place], [place], [address] , [place]. tel:[phone] Referring Provider: [address], [place], [place], [address]. tel:[phone] PREV VISIT, EST, AGE 40-64 [facility], [address], [place], [place], [address], [place] tel:[phone] [facility] Medicine PHysical (chief complaint) Encntr for general adult medical exam w/o abnormal findings 8 Franky Osorio. [address], [place], [place], [address] , [place]. tel:[phone] Referring Provider: [address], [place], [place], [address]. tel:[phone] OFFICE/OUTPA TIENT VISIT, EST [facility], [address], [place], [place], [address], [place] tel:[phone] [facility] Medicine HTN (chief complaint) HLP (chief complaint) knee pani1 (chief complaint) tobacco (chief complaint) Essential (primary) hypertensionHyperli pidemiaPain in right kneeTobacco use 7 Franky Brown [address], [place], [place], [address] , [place]. [phone] Referring Provider: [address], [place], [place], [address]. tel:[phone] OFFICE/OUTPA TIENT VISIT, EST [facility], [address], [place], [place], [address], [place] tel:[phone] [facility] Medicine glucose1 (chief complaint) HLP (chief complaint) HTN (chief complaint) knee pain1 (chief complaint) Essential (primary) hypertensionHyperli pidemiaHyperglycemi aSleep apnea Dec-0 7 Franky [address], [place], [place], [address] , [place]. [phone] Referring Provider: [address], [place], [place], [address]. tel:[phone] PREV VISIT, EST, AGE 40-64 [facility], [address], [place], [place], [address], [place] tel:[phone] [facility] Medicine PHysical (chief complaint) Encounter for general adult medical exam w abnormal findingsEssential (primary) hypertensionHyperli pidemiaPain in right knee 7 Wilkins Devon. [address], [place], [place], [address] , [place]. [phone] Referring Provider: Anali Ulloa [address], [place], [place], [address]. tel:[phone] PREV VISIT, EST, AGE 40-64 [facility], [address], [place], [place], [address], [place] tel:[phone] [facility] Medicine PHysical (chief complaint) Routine medical examBlood pressure elevatedSleep apneaOtalgiaDietary surveillance and counseling 5 Franky Osorio. [address], [place], [place], [address] , [place]. tel:[phone] Referring Provider: Anali Ulloa [address], [place], [place], [address]. tel:[phone] PREV VISIT, EST, AGE 40-64 [facility], [address], [place], [place], [address], [place] tel:[phone] [facility] phsycial (chief complaint) Routine Medical ExamDietary surveillance and counselingRoutine Medical Exam 3 Franky Osorio. [address], [place], [place], [address] , [place]. tel:[phone] Referring Provider: Anali Ulloa [address], [place], [place], [address]. tel:[phone] OFFICE/OUTPA TIENT VISIT, EST [facility], [address], [place], [place], [address], [place] tel:[phone] [facility] headache (chief complaint) Dietary surveillance and counselingHeadacheC ervicalgia 3 Franky Osorio. [address], [place], [place], [address] , [place]. tel:[phone] Referring Provider: Anali Ulloa [address], [place], [place], [address]. tel:[phone] OFFICE/OUTPA TIENT VISIT, EST [facility], [address], [place], [place], [address], [place] tel:[phone] [facility] back pain (chief complaint) hLP (chief complaint) Other and unspecified hyperlipidemiaLumba goDietary surveillance and counseling 2 Franky Osorio. [address], [place], [place], [address] , [place]. tel:[phone] Referring Provider: Devon Wilkins, [address], [place], [place], [address]. tel:[phone] Family History Family Member Type Diagnosis Age At Onset Mother Problem (finding) Cancer, breast Father Problem (finding) liver cirrhosis Sister Problem (finding) Cancer - stomach Payers Payer name Insurance type Covered constitution party ID Authoriza tikelechi(s) [facility] [id number] Social History Type Description Quantity Date Captured [...] Diane [address] [place], [place] [id number] Ordered: Referrals: Allopathic & Osteopathic Physicians : [...] which showed advanced DDD L4 to S1. finger1 Pt accidently sm ashed his left small finger between two rocks over the last weekend and he injured distal left ring finger. the nail appears black and he notices some redness and pain spreading from distal left ring finger as well .Pt denies any drainage. Pt denies any sensory loss HTN Pt has HTN. Pt h as been out of irbesartan for one week and his bp is borderline high Pt denies any chest pain or headache pain Pt has back and knee pain Pt denies any worsening pain pt denies any sciatica or any loss of bladder or bowel control. Pt denies any knee redness or warmth. Pt needs norco refill. Pt denies any worsening pain. Pt denies any saddle area paresthesia. alcohol1 Pt has alcohol d ependency. Pt drinks alcohol frequently. Pt already had DUI HTN Pt has HTn pt ta kes irbesartan and his bp is stable pt tolerating it ok .pt denies any side effects with irbesartan . pain1 Pt has back and knee pain Pt denies any worsening pain pt denies any sciatica or any loss of bladder or bowel control. Pt denies any knee redness or warmth. Pt needs norco refill. Pt denies any worsening pain. Pt denies any saddle area paresthesia. 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 Pt denies any other complaints chronic pain Pt has chronic b ack [...] control HTN Pt has HTN. Pt t akes norvasc and his BP is borderline. Pt denies any chest pain or headache back pain1 pt c/o intermitt ent low back pain. Pt has flares up frequently Pt c/o left sciatica Pt denies any loss of bladder control. Pt denies any acute injury. Pt had acute flare up of low back pain for two weeks. Pt denies any left leg numbness. HTN Pt takes norvasc His BP is borderline today. Pt states that he is in pain currently Pt denies any chest pain or headache anxiety1 Pt has chronic a nxiety Pt denies any depression or any suicidal thought Pt denies any crying spells. Pt takes buspar and doing ok Physical Pt needs annual physical. pt accident [...] suicidal thought. pt denies any crying spells HLP Patient has hype rlipidemia. Patient has been taking Zocor. his lipid profile is normal now. Patient denies any myalgia. glucose1 Patient has mild high glucose. Patient denies any polyuria polydipsia. Patient has not borderline A1c. HTN Patient has hype rtension. Patient take amlodipine. His blood pressure is borderline today. Patient denies any chest pain. 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 Patient has knee pain. Patient seen ortho and is status post injection. Patient takes anti-inflammatory as needed. Patient takes [place] PRN. Patient denies any loss of bowel bladder control. Patient denies any sciatica. chest pain1 pt denies any ch est pain pt had negative holter monitor and he also has negative nuclear stress test and also echo per pt He was told that his heart is in good shape HLP Pt has HLP. Pt t miriansherrie zocor. Pt denies any myalgia HTN Pt has HTN. Pt t miriansherrie norvasc. His BP is ok today fatigue1 Pt has mild fati medhat and he does snore slightly while asleep. Pt failed home sleep study. Pt does not want to repeat sleep study in lab now anxiety1 Pt has chronic a nxiety. PT took buspar and worked ok. Pt denies depression or any suicidal thought. Pt denies any crying spells chest pain1 Pt states that hoa zarco [...] or bedrest. Pt was set up with [employer] cardiac rhythm monitor by [employer] from the ER Pt has not had anymore chest pain or any palpitation since HLP Pt is extremely noncompliant with cholesterol meds He stopped zocor and he never did lab work. He is not on any diet chronic pain1 Pt has chronic l ow back and knee pain. He has degenerative disease Pt failed NSAID Pt failed ultram Pt takes norco PRN only. Pt denies any sciatica or any loss of bladder control. Pt denies any worsening pain HTN Pt has recurrent HTN. Pt is noncompliant with BP meds. he stopped benicar on his own recently stating it made him feeling tired. Pt denies any acute chest pain or any headache PHysical Pt needs annual physical. Pt [...] any plan to quit at this time HLP Pt has HLP. Pt i s not on any diet. Pt is not sure if he can try to diet to control his HLP. Pt has chronically elevated lipid proifle knee pain1 Pt has right kne e pain. Pt just seen ortho and received right knee injection. pt states that he will have righ tknee MRi soon. pt states that his right knee pian is still present most of the time. Pt denies any knee swelling or rendess. glucose1 Pt has mildly hi gh glucose. Pt denies any polyuria polydipsia. HTN Pt takes benicar and his BP is high. Pt denies any chest pain or heaache PHysical Pt needs annual physical. Pt c/o right knee pain for two weeks. pt denies any injury. PT denies any swelling or redness. 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 Relate d to Hyperlipidemia Special diet education Related t o Body mass index (BMI) 28.0-28.9, adult Stop smoking. Related to Essen tial (primary) hypertension Follow a low sodium diet. Relate d to Essential (primary) hypertension Special diet education Related t [...] Related to Dietary Surveillance and Counseling Prescribed Activity and Exercise Education Related to Dietary Surveillance and Counseling Prescribed Diet Educ ation/Lifestyle Education Regarding Diet Related to Dietary Surveillance and Counseling Increase activity. Related to Es sential (primary) hypertension Stop smoking. Related to Essen tial (primary) hypertension Follow a low sodium diet. Relate d to Essential (primary) hypertension Prescribed Diet Educ ation/Lifestyle Education Regarding Diet Related to Dietary Surveillance and Counseling Prescribed Activity and Exercise Education Related to Dietary Surveillance and Counseling Special [...] Mental Status Date Cognitive Assessment Orientation - [place] ed to time, place, person, situation.
--- OUTSIDE RECORDS SUMMARY | 2024-07-14 10:27 | XMS_ITS | Clinical Summary ---
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
--- OUTSIDE RECORDS SUMMARY | 2024-07-14 10:27 | XMS_ITS | Referral Summary ---
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
--- NOTE | 2024-07-14 10:31 | ED.GENADULT ---
HPI - General Adult General Chief complaint: Unspecified Stated complaint: covid+ problems Time Seen by Provider: 07/14/24 08:51 Source: patient Mode of arrival: ambulatory Limitations: no limitations History of Present Illness HPI narrative: 54-year-old with a history of hypertension year with a complains of abdominal cramping which started early this morning. Patient states that he diagnosed with Covid at home , this morning when he woke up started to have abdominal cramps . denies any Nausea or vomiting . Onset (ago): day(s) (1) Location: abdomen Severity: moderate Quality: aching Pain Consistency: now resolved Relieving factors: none Exacerbating factors: none Associated symptoms: denies other symptoms Related Data Home Medications ?Medication ?Instructions ?Recorded ?Confirmed ?Last Taken ?Type amlodipine 10 mg tablet 10 mg DIRECTED 03/28/20 08/31/22 Unknown History rosuvastatin 10 mg tablet 10 mg DIRECTED 03/28/20 08/31/22 Unknown History Allergies Allergy/AdvReac Type Severity Reaction Status Date / Time No Known Allergies Allergy Unknown Verified 07/14/24 08:10 [facility] Past Medical History Medical History Closed right ankle fracture Arthritis GERD (gastroesophageal reflux disease) Sleep apnea HTN (hypertension) Hyperlipidemia Ganglion cyst behind his right knee Surgical History Surgical History History of hand surgery left tendon repair H/O removal of cyst Family History Family History Sibling Family history of malignant neoplasm of stomach Mother Family history of malignant neoplasm of breast in first degree relative Cerebrovascular accident Social History Social History Smoking packs per day: 1.5 Smoking cigarettes per day: 30.0 Smoking status: Current every day smoker Tobacco type: cigarettes Alcohol intake: current Alcohol use details: Pt drinks two double shots of Fireball and four 16 ounce beers daily. Substance use: never Occupation/Education: occupation Additional occupation/education comments: Pt works at [employer]. Gender identity (if verbalized by the patient): Male Exam Narrative: GENERAL: Well-appearing, well-nourished, and in no acute distress. HEAD: Normocephalic, atraumatic. EYES: PERRLA and EOMI.. NECK: Supple. CHEST: Clear to auscultation. No respiratory distress. HEART: Regular rate and rhythm. No murmur heard. Normal peripheral pulses. ABDOMEN: Soft, nontender, nondistended, normal active bowel sounds. EXTREMITIES: Normal range of motion. No edema. SKIN: Warm, dry, no rash. NEURO: No focal deficits. Alert and oriented x3. PSYCH: Normal mood and affect. Course Course Emergency Course: Patient was given a L of normal saline. He started feeling much better informed him about his lab work. Advised him to drink more fluids as tolerated Tylenol or ibuprofen for body aches and fever Vital Signs Vital signs: Vital Signs Temperature 36.8 C 07/14/24 08:14 Pulse Rate 80 07/14/24 08:14 Respiratory Rate 16 07/14/24 08:14 Blood Pressure 163/103 H 07/14/24 08:14 Pulse Oximetry 97 07/14/24 08:14 Oxygen Delivery Room Air 07/14/24 08:14 Temperature 36.8 C 07/14/24 08:14 Pulse Rate 87 07/14/24 08:20 Respiratory Rate 16 07/14/24 08:24 Blood Pressure 154/106 H 07/14/24 08:20 Pulse Oximetry 97 07/14/24 08:14 Oxygen Delivery Room Air 07/14/24 08:14 Medical Decision Making Differential Diagnosis Differential Diagnosis: Gastroenteritis, dehydration, viral syndrome Medical Records Medical records reviewed: Yes I reviewed the external patient's medical records. Vital Signs Vital Signs: Vital Signs Temperature 36.8 C 07/14/24 08:14 Pulse Rate 80 07/14/24 08:14 Respiratory Rate 16 07/14/24 08:14 Blood Pressure 163/103 H 07/14/24 08:14 Pulse Oximetry 97 07/14/24 08:14 Oxygen Delivery Room Air 07/14/24 08:14 Temperature 36.8 C 07/14/24 08:14 Pulse Rate 87 07/14/24 08:20 Respiratory Rate 16 07/14/24 08:24 Blood Pressure 154/106 H 07/14/24 08:20 Pulse Oximetry 97 07/14/24 08:14 Oxygen Delivery Room Air 07/14/24 08:14 Lab Data Lab results reviewed: Yes I reviewed the patient's lab results. 07/14/24 08:31 07/14/24 08:31 Labs: Lab Results 07/14/24 07/14/24 Range/Units 08:31 08:36 WBC 5.1 (4.5-10.0) K/mm3 RBC 4.51 L (4.6-6.20) M/mm3 Hgb 14.7 (14.0-18.0) g/dL Hct 44.1 (42.0-52.0) % MCV 97.8 (80-100) fl MCH 32.6 (26-34) pg MCHC 33.3 (32-36) g/dl RDW 13.8 (11.5-14.5) % Plt Count 195 (150-375) k/mm3 MPV 9.6 (7.4-10.4) fl Immature Gran % (Auto) Not Reportable Neut % (Auto) Not Reportable Lymph % (Auto) Not Reportable Will % (Auto) Not Reportable Eos % (Auto) Not Reportable Baso % (Auto) Not Reportable Lymph # (Auto) Not Reportable Will # (Auto) Not Reportable Eos # (Auto) Not Reportable Baso # (Auto) Not Reportable Abs Immat Gran (auto) Not Reportable Absolute Neuts (auto) Not Reportable Absolute Nucleated RBC Not Reportable Total Counted 100 Neutrophils % (Manual) 61 (46-73) % Band Neutrophils % 0 (0-6) % Lymphocytes % (Manual) 25 (18-44) % Monocytes % (Manual) 14 H (3-9) % Nucleated RBC % Not Reportable Abs Neuts (Manual) 3.11 (1.3-6.7) K/mm3 Abs Lymphs (Manual) 1.27 (1.1-4.5) K/mm3 Abs Monocytes (Manual) 0.71 (0.1-0.90) K/mm3 Smudge Cells Few Platelet Estimate Adequate (Adequate) Anisocytosis 1+ Schistocytes None seen Sodium 129 L (137-145) mmol/L Potassium 4.0 (3.4-5.0) mmol/L Chloride 95 L (98-107) mmol/L Carbon Dioxide 22 (22-30) mmol/L Anion Gap 12 (4-12) mmol/L BUN 15 (9-20) mg/dL Creatinine 1.00 (0.7-1.3) mg/dL Estim Creat Clear Calc 78 ml/min Estimated GFR > 60 (59 - ) Glucose 113 H (65-110) mg/dL Calcium 8.9 (8.4-10.2) mg/dL Total Bilirubin 0.7 (0.2-1.3) mg/dL AST 59 (17-59) U/L ALT 57 H (6-50) U/L Alkaline Phosphatase 81 (38-126) U/L Total Protein 8.0 (6.3-8.2) g/dL Albumin 4.8 (3.5-5.1) g/dL Lipase 117 (23-300) U/L Urine Color Yellow (Yellow) Urine Appearance Clear (Clear) Urine pH 6.5 (5.0-9.0) Ur Specific [place] 1.008 (1.001-1.035) Urine Protein Negative (Negative) mg/dL Urine Glucose (UA) Negative (Negative) mg/dL Urine Ketones Negative (Negative) mg/dL Ur Blood (Man) 1+ H (Negative) Urine Nitrate Negative (Negative) Urine Bilirubin Negative (Negative) Urine Urobilinogen 0.2 (<2.0) mg/dL Leukocyte Esterase Rfl Negative (Negative) EUSEBIO/UL Urine RBC 0-2 (0-2) /hpf Urine WBC 0-3 (0-3) /hpf Urine Bacteria Rare /hpf Discharge Plan Discharge Clinical Impression: Abdominal pain Qualifiers: Abdominal location: generalized Qualified Code(s): R10.84 - Generalized abdominal pain Patient Disposition: Home, Self-Care Condition: Stable Instructions: Abdominal Pain (ED) Additional Instructions: Continue home medication drink plenty of fluids Tylenol ibuprofen for body aches and fever. Patient Language: Swedish Prescriptions: No Action penicillin V potassium 500 mg tablet 500 mg PO Q12H 10 Days Qty: 20 0RF amlodipine 10 mg tablet 10 mg DIRECTED rosuvastatin 10 mg tablet 10 mg DIRECTED meclizine [Antivert] 50 mg tablet 50 mg PO BID Qty: 20 0RF meclizine 25 mg tablet 25 mg PO TID PRN (Reason: dizziness) Qty: 20 0RF Follow-up/Referrals: Devon Wilkins MD [Primary Care Provider] - Time of Disposition: 10:35
[2024-07-14 11:13] VITALS: BP 132/98; PULSE 74; RESP 20; O2SAT 99
== END 2024-07-14 11:15 | disposition home or self-care (01) ==
PROVIDERS: Emergency Provider Family Medicine; PCP Emergency Medicine
DX: U07.1 COVID-19 (principal); R10.84 Generalized abdominal pain; I10 Essential (primary) hypertension; E78.5 Hyperlipidemia, unspecified; G47.30 Sleep apnea, unspecified; M19.90 Unspecified osteoarthritis, unspecified site; K21.9 Gastro-esophageal reflux disease without esophagitis; F17.210 Nicotine dependence, cigarettes, uncomplicated
CPT/HCPCS: 36415; 80053; 81001; 83690; 85025; 96360; 99283; J7030

== ENCOUNTER 2024-12-26 01:10 | Emergency (ER) | payer OTHER, SELFPAY ==
--- OUTSIDE RECORDS SUMMARY | 2024-11-06 08:10 | XMS_ITS | Continuity of Care Document ---
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 [address], [place], [place], [address] , [place]. tel:[phone] OFFICE/OUTPA TIENT VISIT, EST [facility], [address], [place], [place], [address], [place] tel:[phone] [facility] back pain1 (chief complaint) HTN (chief complaint) Other spondylosis, lumbar regionEssential (primary) hypertension 5 Franky Osorio. [address], [place], [place], [address] , [place]. tel:[phone] PREV VISIT, EST, AGE 40-64 [facility], [address], [place], [place], [address], [place] tel:[phone] [facility] physical (chief complaint) Encounter for general adult medical exam w abnormal findingsEssential (primary) hypertensionMixed hyperlipidemiaLumba go with sciatica, left sideBarrett's esophagus without dysplasiaPolyp of colon 5 Franky Osorio. [address], [place], [place], [address] , [place]. [phone] OFFICE/OUTPA TIENT VISIT, EST [facility], [address], [place], [place], [address], [place] tel:[phone] [facility] Medicine finger1 (chief complaint) HTN (chief complaint) pain (chief complaint) alcohol1 (chief complaint) Cellulitis of left upper limbEssential (primary) hypertensionChronic pain syndromeAlcohol abuse, uncomplicated 4 Franky Osorio. [address], [place], [place], [address] , [place]. tel:[phone] OFFICE/OUTPA TIENT VISIT, EST [facility], [address], [place], [place], [address], [place] tel:[phone] [facility] Medicine HTN (chief complaint) pain1 (chief complaint) Chronic pain syndromeEssential (primary) hypertension 4 Wilkins Devon. [address], [place], [place], [address] , [place]. tel:[phone] PREV VISIT, EST, AGE 40-64 [facility], [address], [place], [place], [address], [place] tel:[phone] [facility] physical (chief complaint) Encounter for general adult medical exam w abnormal findingsEssential (primary) hypertensionChronic pain syndromeBarrett's esophagus without dysplasiaMixed hyperlipidemiaBleed ing from noseCellulitis of left armCholesterolosis of gallbladder 4 Franky Brown [address], [place], [place], [address] , [place]. tel:[phone] [facility], [address], [place], [place], [address], [place] tel:[phone] [facility] No Information 3 Franky Brown [address], [place], [place], [address] , [place]. tel:[phone] OFFICE/OUTPA TIENT VISIT, EST [facility], [address], [place], [place], [address], [place] tel:[phone] [facility] HTN (chief complaint) HLP (chief complaint) barrett1 (chief complaint) knee pain1 (chief complaint) Rodríguez's esophagus without dysplasiaChronic pain syndromeMixed hyperlipidemiaEssen tial (primary) hypertensionAlcohol dependence, in remission 3 Franky Brown [address], [place], [place], [address] , [place]. tel:[phone] PREV VISIT, EST, AGE 40-64 [facility], [address], [place], [place], [address], [place] tel:[phone] [facility] physical (chief complaint) Encounter for general adult medical exam w abnormal findingsEssential (primary) hypertensionBarrett 's esophagus without dysplasiaMixed hyperlipidemiaChole sterolosis of gallbladderChronic pain syndrome 3 Franky Brown [address], [place], [place], [address] , [place]. tel:[phone] OFFICE/OUTPA TIENT VISIT, EST [facility], [address], [place], [place], [address], [place] tel:[phone] [facility] pain1 (chief complaint) sick (chief complaint) Viral infectionChronic pain syndrome 3 Franky Osorio. [address], [place], [place], [address] , [place]. [phone] OFFICE/OUTPA TIENT VISIT, EST [facility], [address], [place], [place], [address], [place] tel:[phone] [facility] HLP (chief complaint) pain (chief complaint) Barrett1 (chief complaint) Chronic pain syndromeMixed hyperlipidemiaBarre tt's esophagus without dysplasia 2 Franky Osorio. [address], [place], [place], [address] , [place]. tel:[phone] OFFICE/OUTPA TIENT VISIT, EST [facility], [address], [place], [place], [address], [place] tel:[phone] [facility] HLP (chief complaint) axillar1 (chief complaint) gallbladde r polyp1 (chief complaint) HTN (chief complaint) pain1 (chief complaint) Cholesterolosis of gallbladderLymphade nopathyEssential (primary) hypertensionChronic pain syndromeMixed hyperlipidemia 2 Franky Brown [address], [place], [place], [address] , [place]. tel:[phone] PREV VISIT, EST, AGE 40-64 [facility], [address] [place], [address], [place] tel:[phone] [facility] physical (chief complaint) Encounter for general adult medical exam w abnormal findingsChronic pain syndromeHyperlipide miaPolyp of colonEssential (primary) hypertensionBarrett 's esophagus without dysplasiaCholestero losis of gallbladderLymphade nopathy 2 Wilkins Devon. [address], [place], [place], [address] , [place]. tel:[phone] OFFICE/OUTPA TIENT VISIT, [facility], [address], [place], [place], [address], [place] tel:[phone] [facility] sick (chief complaint) pain (chief complaint) HLP (chief complaint) Viral infectionChronic pain syndromeHyperlipide cesar 2 Wilkins Devon. [address], [place], [place], [address] , [place]. tel:[phone] OFFICE/OUTPA TIENT VISIT, [facility], [address], [place], [place], [address], [place] tel:[phone] [facility] HTN (chief complaint) Barrett1 (chief complaint) polyp1 (chief complaint) pain (chief complaint) HLP (chief complaint) Rodríguez's esophagus without dysplasiaCholestero losis of gallbladderEssentia l (primary) hypertensionChronic pain syndromeHyperlipide miaPolyp of colon 1 Franky Osorio. [address], [place], [place], [address] , [place]. tel:[phone] OFFICE/OUTPA TIENT VISIT, [facility], [address], [place], [place], [address], [place] tel:[phone] [facility] pain (chief complaint) barrett1 (chief complaint) palpitatio n1 (chief complaint) PalpitationsBarrett 's esophagus without dysplasiaChronic pain syndrome 1 Franky Osorio. [address], [place], [place], [address] , [place]. tel:[phone] OFFICE/OUTPA TIENT VISIT, [facility], [address], [place], [place], [address], [place] tel:[phone] [facility] polyp1 (chief complaint) Cholesterolosis of gallbladder 1 Franky Osorio. [address], [place], [place], [address] , [place]. tel:[phone] OFFICE/OUTPA TIENT VISIT, EST [facility], [address] [place], [address], tel:[phone] [facility] barrett1 (chief complaint) gallbladde r polyp (chief complaint) pain (chief complaint) Rodríguez's esophagus without dysplasiaChronic pain syndromeCholesterol osis of gallbladder May-0 6 1 Franky Brown [address], [place], [place], [address] , [place]. tel:[phone] OFFICE/OUTPA TIENT VISIT, EST [facility], [address] [place], [address], tel:[phone] [facility] alcohol1 (chief complaint) Alcohol dependence in remissionGeneralize d Anxiety Disorder Apr-0 8- 1 Franky Brown [address], [place], [place], [address] , [place]. tel:[phone] PREV VISIT, EST, AGE 40-64 [facility], [address], [place], [place], [address], [place] tel:[phone] [facility] physical (chief complaint) Encounter for general adult medical exam w abnormal findingsHyperlipide miaBarrett's esophagus without dysplasiaPolyp of colonEssential (primary) hypertensionGeneral ized Anxiety DisorderChronic pain syndrome Mar-0 3- 1 Franky Osorio. [address], [place], [place], [address] , [place]. tel:[phone] OFFICE/OUTPA TIENT VISIT, EST [facility], [address] [place], [address], [place] tel:[phone] [facility] HLP (chief complaint) glucose1 (chief complaint) gallbladde r polyp1 (chief complaint) pain (chief complaint) Cholesterolosis of gallbladderHyperlip idemiaHyperglycemia Chronic pain syndrome Nov-3 0-202 0 Franky Brown [address], [place], [place], [address] , [place]. tel:[phone] Referring Provider: An[address], [place], [place], [address]. tel:[phone] OFFICE/OUTPA TIENT VISIT, [facility], [address], [place], [place], [address], [place] tel:[phone] [facility] sore throat1 (chief complaint) pain1 (chief complaint) gallbladde r polyp1 (chief complaint) HLP (chief complaint) Cholesterolosis of gallbladderAcute pharyngitisHyperlip idemiaChronic pain syndromeGERD w/o esophagitis 0 Franky Brown [address], [place], [place], [address] , [place]. tel:[phone] Referring Provider: Anali Ulloa [facility] A, [place], [place], [address]. tel:[phone] OFFICE/OUTPA TIENT VISIT, [facility], [facility] [address] [place], [address], [place] tel:[phone] [facility] GERD1 (chief complaint) HTN (chief complaint) back 1 (chief complaint) panic attacks1 (chief complaint) hyperglyce mia1 (chief complaint) Chronic pain syndromeEssential (primary) hypertensionGERD w/o esophagitisCholeste rolosis of gallbladderPanic attackHyperglycemia 0 Franky Br[address], [place], [place], [address] , [place]. tel:[phone] Referring Provider: Anali Ull[address], [place], [place], [address]. tel:[phone] OFFICE/OUTPA TIENT VISIT, [facility], [facility] [address] [place], [address], [place] tel:[phone] [facility] abd pain1 (chief complaint) pain (chief complaint) GERD w/o esophagitisChronic pain syndromeCholesterol osis of gallbladder Jul- 0 Franky Brown [address], [place], [place], [address] , . tel:[phone] Referring Provider: [address], [place], [place], [address]. tel:[phone] PREV VISIT, EST, AGE 40-64 [facility], [address], [place], [place], [address], [place] tel:[phone] [facility] Medicine physical (chief complaint) PHysical (chief complaint) Encounter for general adult medical exam w abnormal findingsEssential (primary) hypertensionCholest erolosis of gallbladderChronic pain syndromeHyperlipide miaHyperglycemia 0 Franky Osorio. [address], [place], [place], [address] , [place]. tel:[phone] Referring Provider: [address], [place], [place], [address]. tel:[phone] OFFICE/OUTPA TIENT VISIT, [facility], [address], [place], [place], [address], [place] tel:[phone] [facility] chronic pain (chief complaint) HLP (chief complaint) HTN (chief complaint) tobacco1 (chief complaint) Body mass index (BMI) 27.0-27.9, adultHyperlipidemia Essential (primary) hypertensionChronic pain syndromeTobacco use 9 Frakny Br[address], [place], [place], [address] , [place]. tel:[phone] Referring Provider: [address] U[address], [place], [place], [address]. tel:[phone] OFFICE/OUTPA TIENT VISIT, [facility], [address] [place], [address], [place] tel:[phone] [facility] HLP (chief complaint) anxiety1 (chief complaint) pain (chief complaint) HTN (chief complaint) HyperlipidemiaGener alized Anxiety DisorderChronic pain syndromeEssential (primary) hypertension 9 Franky Brown [address], [place], [place], [address] , [place]. [phone] Referring Provider: Devon Wilkins [address], [place], [place], [address]. tel:[phone] OFFICE/OUTPA TIENT VISIT, EST [facility], [address], [place], [place], [address], [place] tel:[phone] [facility] HLP (chief complaint) chronic pain1 (chief complaint) HTN (chief complaint) anxiety1 (chief complaint) HyperlipidemiaEssen tial (primary) hypertensionGeneral ized Anxiety DisorderChronic pain syndrome 9 Franky Osorio. [address], [place], [place], [address] , [place]. [phone] Referring Provider: Anali Ull[address], [place], [place], [address]. tel:[phone] OFFICE/OUTPA TIENT VISIT, EST [facility], [address], [place], [place], [address], [place] tel:[phone] [facility] back pain1 (chief complaint) HTN (chief complaint) anxiety1 (chief complaint) Essential (primary) hypertensionGeneral ized Anxiety DisorderLumbago with sciatica, left side 9 Franky Osorio. [address], [place], [place], [address] , [place]. [phone] Referring Provider: Anali Ulloa [address], [place], [place], [address]. tel:[phone] PREV VISIT, EST, AGE 40-64 [facility], [address], [place], [place], [address], [place] tel:[phone] [facility] Physical (chief complaint) Encntr for general adult medical exam w/o abnormal findings 9 Franky Osorio. [address], [place], [place], [address] , [place]. tel:[phone] Referring Provider: Devon Wilkins, [address], [place], [place], [address]. tel:[phone] OFFICE/OUTPA TIENT VISIT, [facility], [address], [place], [place], [address], [place] tel:[phone] [facility] HLP (chief complaint) glucose1 (chief complaint) chronic pain1 (chief complaint) HTN (chief complaint) HyperlipidemiaEssen tial (primary) hypertensionHypergl ycemiaChronic pain syndrome 8 Franky Osorio. [address], [place], [place], [address] , [place]. tel:[phone] Referring Provider: Anali Ulloa [address] [facility] [address], [place], [place], [address]. tel:[phone] OFFICE/OUTPA TIENT VISIT, [facility], [address], [place], [place], [address], [place] tel:[phone] [facility] chest pain1 (chief complaint) HLP (chief complaint) HTN (chief complaint) fatigue1 (chief complaint) anxiety1 (chief complaint) HyperlipidemiaEssen tial (primary) hypertensionChronic pain syndromeGeneralized Anxiety DisorderSleep apneaChest pain 8 Franky Osorio. [address], [place], [place], [address] , [place]. tel:[phone] Referring Provider: Anali Ulloa [address], [place], [place], [address]. tel:[phone] OFFICE/OUTPA TIENT VISIT, [facility], [address], [place], [place], [address], [place] tel:[phone] [facility] chest pain1 (chief complaint) HLP (chief complaint) chronic pain1 (chief complaint) HTN (chief complaint) Chest painHyperlipidemiaE ssential (primary) hypertensionGeneral ized Anxiety DisorderChronic pain syndrome 8 Franky Osorio. [address], [place], [place], [address] , [place]. tel:[phone] Referring Provider: Anali Ulloa [address], [place], [place], [address]. tel:[phone] PREV VISIT, EST, AGE 40-64 [facility], [address], [place], [place], [address], [place] tel:[phone] [facility] PHysical (chief complaint) Encntr for general adult medical exam w/o abnormal findings 8 Franky Osorio. [address], [place], [place], [address] , [place]. [phone] Referring Provider: Anali Ulloa [address], [place], [address]. tel:[phone] OFFICE/OUTPA TIENT VISIT, EST [facility], [address], [place], [place], [address], [place] [phone] [facility] HTN (chief complaint) HLP (chief complaint) knee pani1 (chief complaint) tobacco (chief complaint) Essential (primary) hypertensionHyperli pidemiaPain in right kneeTobacco use Jan- 7 Franky Osorio. [address], [place], [place], [address] , [place]. [phone] Referring Provider: Anali Ulloa [address], [place], [place], [address]. tel:[phone] OFFICE/OUTPA TIENT VISIT, EST [facility], [address], [place], [place], [address], [place] [phone] [facility] Medicine glucose1 (chief complaint) HLP (chief complaint) HTN (chief complaint) knee pain1 (chief complaint) Essential (primary) hypertensionHyperli pidemiaHyperglycemi aSleep apnea Sep-0 7 Franky Brown [address], [place], [place], [address] , [place]. [phone] Referring Provider: Anali Ulloa [address], [place], [place], [address]. tel:[phone] PREV VISIT, EST, AGE 40-64 [facility], [address], [place], [place], [address], [place] tel:[phone] [facility] PHysical (chief complaint) Encounter for general adult medical exam w abnormal findingsEssential (primary) hypertensionHyperli pidemiaPain in right knee 7 Franky Osorio. [address], [place], [place], [address] , [place]. tel:[phone] Referring Provider: Anali Ulloa [address], [place], [place], [address]. tel:[phone] PREV VISIT, EST, AGE 40-64 [facility], [address], [place], [place], [address], [place] tel:[phone] [facility] Medicine PHysical (chief complaint) Routine medical examBlood pressure elevatedSleep apneaOtalgiaDietary surveillance and counseling 5 Franky Osorio. [address], [place], [place], [address] , [place]. tel:[phone] Referring Provider: Anali Ulloa [address], [place], [place], [address]. tel:[phone] PREV VISIT, EST, AGE 40-64 [facility], [address], [place], [place], [address], [place] tel:[phone] [facility] Medicine phsycial (chief complaint) Routine Medical ExamDietary surveillance and counselingRoutine Medical Exam 3 Franky Brown [address], [place], [place], [address] , [place]. tel:[phone] Referring Provider: Anali Ulloa [address], [place], [place], [address]. tel:[phone] OFFICE/OUTPA TIENT VISIT, EST [facility], [address], [place], [address], [place] tel:[phone] [facility] Medicine headache (chief complaint) Dietary surveillance and counselingHeadacheC ervicalgia 3 Franky Br[address], [place], [place], [address] , [place]. tel:[phone] Referring Provider: Anali Ull[address], [place], [place], [address]. tel:[phone] OFFICE/OUTPA TIENT VISIT, EST [facility], [address], [place], [place], [address], [place] tel:[phone] [facility] back pain (chief complaint) hLP (chief complaint) Other and unspecified hyperlipidemiaLumba goDietary surveillance and counseling 2 Franky Osorio. [address], [place], [place], [address] , [place]. tel:[phone] Referring Provider: Devon Wilkins [address], [place], [place], [address]. tel:[phone] Family History Family Member Type Diagnosis Age At Onset Mother Problem (finding) Cancer, breast Father Problem (finding) liver cirrhosis Sister Problem (finding) Cancer - stomach Payers Payer name Insurance type Covered libertarian ID Authoriza tion(s) [facility] CI [id number] Social History Type Description Quantity Date Captured Comments Alcohol Use Details Unknown Caffeine Use Details Unknown Tobacco Use Status Smoking Status No Information Sex Male Chief Complaint And Reason For Visit No Information Plan Of Treatment Date Type Action Status [...] Diane [address] [place], [place] [id number] Ordered: Referrals: Allopathic & Osteopathic Physicians : [...] any saddle area paresthesia. 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 Pt underwent ablation back in June and [...] pain HTN Pt has HTN Pt ta kes norvasc and his bp is stable pain1 Pt [...] HTN Pt has HTN. Pt t alexia Chavismahendra and his bp is stable at home Pt denies any swelling or sob Barrett Pt has rodríguez e dago on EGD [...] redness or warmth. Pt needs norco refill barrett1 Pt has rodríguez e sophagus Pt has not been taking protonix. Pt states that he was prescribed protonix by GI but he has not started yet. Pt does have GERD daily palpitation1 Pt went to ER la week due to acute onset of palpitation Pt sees cardiology and he had negative cardiac echo and stress test recently. Pt states that he drank some alcohol the night before and he felt acute onset of palpitation and some dizziness the next day. he went to ER and EKG showed PVCs and he was diagnosed with anxiety. Pt currently denies any cardiac symptoms polyp1 Pt has gallbladd er polyp, which has [...] Pt denies any knee redness or warmth alcohol Pt has history o f alcohol dependency [...] overall feels well Pt denies any complaints pain Pt has chronic l ow back and knee pain ,Pt denies any loss of bladder control ,Pt denies any sciatica or any loss of bladder control. PT failed NSAID Pt takes norco PRN for pain ,Pt needs refill HLP Pt has HLP. Pt f john zocor in the past glucose1 Pt has high gluc ose. PT denies any polyuria, polydipsia gallbladder polyp1 Pt has gallbl adder polyp . Pt denies any abd pain ,Pt just had another ultrasound which showed stable less than 5 mm gallbladder polyp sore throat1 Pt c/o sore thro at [...] any chest pain Pt was transfer to [facility] by [facility]. Pt had lab done [...] appetite loss. Pt denies any other complaints HLP Patient has not been taking statin [...] denies any shortness of breath or coughing. chronic pain Pt has chronic b ack and right knee pain Pt seen ortho and had a knee injection ,Pt has arthritis per pt from ortho pt failed NSAID. pt takes norco PRN for pain and doing ok. Pt denies any worsening pain, Pt denies any loss of bladder control. Pt denies any sciatica or leg numbness pain pt c/o intermitt ent low back [...] Pt denies any chest pain or headache HLP Pt has HLP Pt st opped statin due to myalgia. His myalgia resolved now without statin. Pt has been working on low fat and low carb diet anxiety1 Pt states that h is anxiety resolved. Patient stopped taking BuSpar on his own. Patient doing okay. Patient denies any depression or anxiety. Patient denies any suicidal homicidal thought. anxiety1 Pt has chronic a nxiety. PT [...] control HTN Pt has HTN. Pt t alexia butts and his BP is borderline. 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 Patient has knee pain. Patient seen ortho and is status post injection. Patient takes anti-inflammatory as needed. Patient takes [place] PRN. Patient denies any loss of bowel [...] myalgia. HLP Pt has HLP. Pt t akes zocor. Pt denies any myalgia chest pain1 pt denies any ch est pain pt had negative holter monitor and he also has negative nuclear stress test and also echo per pt He was told that his heart is in good shape HTN Pt has HTN. Pt t akes norvasc. His BP is ok today fatigue1 Pt has mild fati medhat and he does snore slightly while asleep. Pt failed home sleep study. Pt does not want to repeat sleep study in lab now anxiety1 Pt has chronic a nxiety. PT took buspar and worked ok. Pt denies depression or any suicidal thought. Pt denies any crying spells HTN Pt has recurrent HTN. Pt is [...] or bedrest. Pt was set up with [employer] cardiac rhythm monitor by CLARISSA from the ER Pt has not had [...] Pt denies any chest pain or heaache knee pain1 Pt has right kne e pain. Pt just seen ortho and received right knee injection. pt states that he will have righ tknee MRi soon. pt states that his right knee pian is still present most of the time. Pt denies any knee swelling or rendess. PHysical Pt needs annual physical. Pt c/o right knee pain for two weeks. pt denies any injury. PT denies any swelling or redness. 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 Instructions Date Instruction Additional Infor mation Stop smoking. Related to Hyper lipidemia Special [...] Diet Related to Dietary Surveillance and Counseling Stop smoking. Related to Essen tial (primary) hypertension Prescribed Activity and Exercise Education Related to Dietary Surveillance and Counseling Increase activity. Related to Es sential (primary) hypertension Follow a low sodium diet. [...] Dietary surveillance counseling Assessments Type Assessment Date No Information
[2024-12-26] VITALS (21 sets, daily range): BP systolic 131–159; BP diastolic 69–108; PULSE 59–104; RESP 16–24; TEMP 36.7; O2SAT 95–99
--- NOTE | ~2024-12-26 | XR_ITS ---
EXAM/PROCEDURE: XR chest 2V - 12/26/2024 1:30 CDT HISTORY: 54 years old Male with chest pressure and tightness TECHNIQUE: Two view(s) of the chest. COMPARISON: None available. FINDINGS: LUNGS/ PLEURA: No focal consolidation. No appreciable pneumothorax or large pleural effusion. HEART/ MEDIASTINUM: Heart appears normal in size. BONES: Degenerative changes. OTHER: Visualized upper abdomen is unremarkable. IMPRESSION: No acute process. Reviewed, dictated and finalized at location N. IMPRESSION: No acute process.
--- NOTE | 2024-12-26 01:13 | ECG_ITS ---
Test Date: 2024-12-26 01:16:10 Measurements Intervals [place] Rate: 97 P: 66 [place]: 172 QRS: 68 QRSD: 102 T: 49 QT: 335 QTc: 426 Interpretive Statements SINUS RHYTHM LEFT ATRIAL ENLARGEMENT INCOMPLETE RIGHT BUNDLE BRANCH BLOCK Electronically Signed On 12-26-2024 07:32:27 CDT by Marty Kelley D.O
[2024-12-26] MEDS: ASPIRIN 81 MG CHEWABLE TABLET 324 MG PO (01:19)
[2024-12-26 01:25] LABS: Hematocrit 42.4 % (42.0-52.0); Hemoglobin 14.2 g/dL (14.0-18.0); Immature Granulocyte Percent A 0.6 % (0-0.5); Lymphocytes Absolute Auto 3.37 K/mm3 (0.9-3.2); Mean Corpuscular HGB Conc 33.5 g/dl (32-36); Mean Corpuscular Hemoglobin 32.6 pg (26-34); Mean Corpuscular Volume 97.5 fl (80-100); Nucleated Red Blood Cells Absolute Auto 0.000 K/mm3 (0.0-0.012); Nucleated Red Blood Cells Perc 0.0 % (0.0-0.2); Platelet Count Result 247 k/mm3 (150-375); Red Blood Count 4.35 M/mm3 (4.6-6.20); White Blood Count 8.0 K/mm3 (4.5-10.0)
--- OUTSIDE RECORDS SUMMARY | 2024-12-26 01:25 | XMS_ITS | Clinical Summary ---
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
[2024-12-26 01:35] LABS: Alanine Aminotransferase 71 U/L (6-50); Albumin Level 4.7 g/dL (3.5-5.1); Alkaline Phosphatase 74 U/L (38-126); Anion Gap 9 mmol/L (4-12); Aspartate Amino Transferase 64 U/L (17-59); Bilirubin,Total 0.3 mg/dL (0.2-1.3); Blood Urea Nitrogen 20 mg/dL (9-20); Calcium 9.7 mg/dL (8.4-10.2); Carbon Dioxide 29 mmol/L (22-30); Chloride 101 mmol/L (98-107); Estimated CRCL calculation 70 ml/min; Estimated Glomerular Filt Rate > 60; Glucose 119 mg/dL (65-110); INR 0.9; Lipase 121 U/L (23-300); Potassium 3.7 mmol/L (3.4-5.0); Prothrombin Time 12.6 Seconds (11.1-14.7); Sodium 139 mmol/L (137-145); Total Protein 7.7 g/dL (6.3-8.2)
--- NOTE | 2024-12-26 01:35 | ED_ITS ---
HPI - General Adult General Chief complaint: Chest Pain Stated complaint: chest pain Time Seen by Provider: 12/26/24 01:14 History of Present Illness HPI narrative: Patient 54-year-old gentleman presents emergency department with chief complaint of chest pain. The patient reports that he woke up this evening reports he was diaphoretic and reports that he had tightness in his chest the patient reports that he has history of hypertension and high cholesterol reports that he has had a negative stress test in past patient reports symptoms are starting to improve since he has arrived to the emergency department. Related Data Home Medications ?Medication ?Instructions ?Recorded ?Confirmed ?Last Taken ?Type amlodipine 10 mg tablet 10 mg DIRECTED 03/28/20 0 08/31/22 Unknown History rosuvastatin 10 mg tablet 10 mg DIRECTED 03/28/20 0 08/31/22 Unknown History Allergies Allergy/AdvReac Type Severity Reaction Status Date / Time No Known Allergies Allergy Unknown Verified 07/14/24 08:10 Review of Systems 2 Review of Systems: A 10 system review of systems was completed on the patient and is negative except for what is stated in the HPI. Nursing and ancillary documentation was reviewed. [facility] Past Medical History Medical History Closed right ankle fracture Arthritis GERD (gastroesophageal reflux disease) Sleep apnea HTN (hypertension) Hyperlipidemia Ganglion cyst behind his right knee Surgical History Surgical History History of hand surgery left tendon repair H/O removal of cyst Family History Family History Sibling Family history of malignant neoplasm of stomach Mother Family history of malignant neoplasm of breast in first degree relative Cerebrovascular accident Social History Social History Smoking packs per day: 1.5 Smoking cigarettes per day: 30.0 Smoking status: Current every day smoker Tobacco type: cigarettes Alcohol intake: current Alcohol use details: Pt drinks two double shots of Fireball and four 16 ounce beers daily. Substance use: never Occupation/Education: occupation Additional occupation/education comments: Pt works at [employer]. Gender identity (if verbalized by the patient): Male Exam 2 Narrative: GENERAL: Well-appearing, well-nourished, and in no acute distress. HEAD: Normocephalic, atraumatic. EYES: PERRLA and EOMI. ENT: Nares clear, no rhinorrhea or epistaxis. Mucous membranes moist. NECK: Supple. CHEST: Clear to auscultation. No respiratory distress. HEART: Regular rate and rhythm. No murmur heard. Normal peripheral pulses. ABDOMEN: Soft, nontender, nondistended, normal active bowel sounds. EXTREMITIES: Normal range of motion. No edema. SKIN: Warm, dry, no rash. NEURO: No focal deficits. Alert and oriented x3. PSYCH: Normal mood and affect. Course Vital Signs Vital signs: Vital Signs Temperature 36.7 C 12/26/24 01:14 Pulse Rate 98 12/26/24 01:14 Respiratory Rate 18 12/26/24 01:14 Pulse Oximetry 97 12/26/24 01:14 Oxygen Delivery Room Air 12/26/24 01:14 Temperature 36.7 C 12/26/24 01:14 Pulse Rate 73 12/26/24 02:01 Respiratory Rate 24 H 12/26/24 02:01 Blood Pressure 154/101 H 12/26/24 02:01 Pulse Oximetry 95 12/26/24 02:01 Oxygen Delivery Room Air 12/26/24 01:21 Medical Decision Making [facility] Narrative Medical decision making narrative: Differential diagnosis includes ACS, atypical chest pain, noncardiac chest pain, EKG showed no acute ischemic changes Initial troponin was negative 3 hour repeat troponin was also negative Chest x-ray showed no focal infiltrate Vital Signs Vital Signs: Vital Signs Temperature 36.7 C 12/26/24 01:14 Pulse Rate 98 12/26/24 01:14 Respiratory Rate 18 12/26/24 01:14 Pulse Oximetry 97 12/26/24 01:14 Oxygen Delivery Room Air 12/26/24 01:14 Temperature 36.7 C 12/26/24 01:14 Pulse Rate 73 12/26/24 02:01 Respiratory Rate 24 H 12/26/24 02:01 Blood Pressure 154/101 H 12/26/24 02:01 Pulse Oximetry 95 12/26/24 02:01 Oxygen Delivery Room Air 12/26/24 01:21 Lab Data 12/26/24 01:19 12/26/24 01:19 Labs: Lab Results 12/26/24 12/26/24 Range/Units 01:19 04:14 WBC 8.0 (4.5-10.0) K/mm3 RBC 4.35 L (4.6-6.20) M/mm3 Hgb 14.2 (14.0-18.0) g/dL Hct 42.4 (42.0-52.0) % MCV 97.5 (80-100) fl MCH 32.6 (26-34) pg MCHC 33.5 (32-36) g/dl RDW 13.5 (11.5-14.5) % Plt Count 247 (150-375) k/mm3 MPV 9.6 (7.4-10.4) fl Immature Gran % (Auto) 0.6 H (0-0.5) % Neut % (Auto) 44.1 L (45.5-73.1) % Lymph % (Auto) 42.2 (18.3-44.2) % [place] % (Auto) 8.9 H (2.6-8.5) % Eos % (Auto) 3.3 (0-4.4) % Baso % (Auto) 0.9 (0.2-1.2) % Lymph # (Auto) 3.37 H (0.9-3.2) K/mm3 [place] # (Auto) 0.7 H (0.1-0.6) K/mm3 Eos # (Auto) 0.3 (0-0.3) K/mm3 Baso # (Auto) 0.1 (0.0-0.1) K/mm3 Abs Immat Gran (auto) 0.05 H (0.00-0.031) K/mm3 Absolute Neuts (auto) 3.5 (1.3-6.7) K/mm3 Absolute Nucleated RBC 0.000 (0.0-0.012) K/mm3 Nucleated RBC % 0.0 (0.0-0.2) % PT 12.6 (11.1-14.7) Seconds INR 0.9 APTT 28.6 (22.3-36.8) Seconds Sodium 139 (137-145) mmol/L Potassium 3.7 (3.4-5.0) mmol/L Chloride 101 (98-107) mmol/L Carbon Dioxide 29 (22-30) mmol/L Anion Gap 9 (4-12) mmol/L BUN 20 (9-20) mg/dL Creatinine 1.11 (0.7-1.3) mg/dL Estim Creat Clear Calc 70 ml/min Estimated GFR > 60 (59 - ) Glucose 119 H (65-110) mg/dL Calcium 9.7 (8.4-10.2) mg/dL Total Bilirubin 0.3 (0.2-1.3) mg/dL AST 64 H (17-59) U/L ALT 71 H (6-50) U/L Alkaline Phosphatase 74 (38-126) U/L Troponin I < 0.012 < 0.012 (0.000-0.034) ng/mL Total Protein 7.7 (6.3-8.2) g/dL Albumin 4.7 (3.5-5.1) g/dL Lipase 121 (23-300) U/L Discharge Plan Discharge Clinical Impression: Chest pain Patient Disposition: Home Condition: Stable Instructions: Antibiotic Form, Chest Pain (ED) Patient Language: Fijian Prescriptions: No Action penicillin V potassium 500 mg tablet 500 mg PO Q12H 10 Days Qty: 20 0RF amlodipine 10 mg tablet 10 mg DIRECTED rosuvastatin 10 mg tablet 10 mg DIRECTED meclizine [Antivert] 50 mg tablet 50 mg PO BID Qty: 20 0RF meclizine 25 mg tablet 25 mg PO TID PRN (Reason: dizziness) Qty: 20 0RF Follow-up/Referrals: Devon Wilkins MD [Primary Care Provider, Family Practice] Time of Disposition: 04:54
[2024-12-26 01:37] LABS: Partial Thromboplastin Time 28.6 Seconds (22.3-36.8)
[2024-12-26 01:47] LABS: Troponin I < 0.012 ng/mL (0.000-0.034)
--- NOTE | 2024-12-26 04:19 | ECG_ITS ---
Test Date: 2024-12-26 04:10:26 Measurements Intervals [place] Rate: 71 P: 64 [place]: 180 QRS: 69 QRSD: 102 T: 47 QT: 376 QTc: 410 Interpretive Statements SINUS ARRHYTHMIA POSSIBLE RIGHT VENTRICULAR CONDUCTION DELAY Electronically Signed On 12-26-2024 07:32:57 CDT by Marty Kelley D.O
[2024-12-26 04:44] LABS: Troponin I < 0.012 ng/mL (0.000-0.034)
== END 2024-12-26 05:02 | disposition home or self-care (01) ==
PROVIDERS: Emergency Provider Emergency Medicine; PCP Emergency Medicine
DX: R07.89 Other chest pain (principal); I10 Essential (primary) hypertension; E78.00 Pure hypercholesterolemia, unspecified; G47.30 Sleep apnea, unspecified; M19.90 Unspecified osteoarthritis, unspecified site; K21.9 Gastro-esophageal reflux disease without esophagitis; F17.210 Nicotine dependence, cigarettes, uncomplicated; Z79.899 Other long term (current) drug therapy; I45.10 Unspecified right bundle-branch block; R94.31 Abnormal electrocardiogram [ECG] [EKG]
CPT/HCPCS: 36415; 71046; 80053; 83690; 84484; 85025; 85610; 85730; 93005; 99284; A9270